=== PATIENT | female | born 1940 | race Caucasian/White ===

== ENCOUNTER 2018-06-02 00:10 | Outpatient (CLI) | payer MEDICARE, SELFPAY ==
--- NOTE | 2018-06-02 13:00 | DI.MAMMO_ITS ---
SYMPTOM/DIAGNOSIS: SCREENING, [facility], Z00.00 MAMMOGRAMS: Mammograms were interpreted according to the usual protocol including computer analysis with CAD system, tomosynthesis and C view imaging. Comparison is made with prior examinations. Breast density, Category C. No masses or microcalcifications are seen. There is nothing to suggest malignancy. IMPRESSION: Negative mammogram. Routine screening is recommended. Category 1C. MQSA ASSESSMENT OF FINDINGS: Negative. Category 1. Patient will receive a letter notifying them of these results. Bi-RADS category C. The breasts are heterogeneously dense, which may obscure small masses.
== END 2018-06-02 00:30 ==
PROVIDERS: PCP Physician Assistant Medical; Visit Provider Physician Assistant Medical
DX: Z12.31 Encounter for screening mammogram for malignant neoplasm of breast (principal)
CPT/HCPCS: 77063; 77067

== ENCOUNTER 2018-07-21 13:27 | Emergency (ER) | payer MEDICARE, SELFPAY ==
[2018-07-21 13:31] VITALS: BP 174/95; PULSE 60; RESP 26; TEMP 36.3; O2SAT 97
--- NOTE | 2018-07-21 13:58 | NUR.NOTE ---
PA is at the bedside.
[2018-07-21] MEDS: Tetracaine 0.5% 4 ML BTL (14:06)
--- NOTE | 2018-07-21 14:47 | NUR.NOTE ---
this RN b/l eyes with 1L NS, pt. continues to be extremely uncomfortable.
--- NOTE | 2018-07-21 15:03 | NUR.NOTE ---
Pt. is unable to participate in visual acuity exam d/t lack of glasses. Pt. is ambulatory, is feeling significantly better after additional drops placed by PA.
--- NOTE | 2018-07-21 15:29 | W.ED.GENAD ---
Discharge Plan Disposition Patient Disposition: OTHER Condition: Fair Discharge Details Chief Complaint: EyeProblem Clinical Impression: Acute allergic conjunctivitis of both eyes Primary Care Provider: Simona Lyons ED Provider: Jerome Davila Home Meds and New Rx's Prescriptions: No Action ursodiol [Actigall] 300 MG capsule 300 mg PO BID RF: 0 liothyronine [Cytomel] 25 MCG tablet 25 mcg PO DAILY RF: 0 levothyroxine [Synthroid] 125 MCG tablet 125 mcg PO DAILY RF: 0 Discharge Instructions Instructions: Conjunctivitis (ED) Additional Instructions: Please proceed directly to Dr. Lema's office for eye examination Referrals: [facility] [place] [Outside] (Please immediately to the office for further examination and treatment along with stabilization of your condition.) Discharge Data Discharge Date/Time-TO BE ENTERED AT DEPARTURE: 07/21/18 15:45 Medical Decision Making Patient presenting to the emergency department for chief complaint of eye pain. Patient states approximately 30 minutes after trimming a house plant, cactus, she began having some slight burning and stinging sensation to her eyes. This has slowly progressed even with use of [id number]-[id number]-[id number] eyedrops and now is severe. Patient denies any other injury or trauma, or the other symptoms. Patient is extremely anxious and appears in significant discomfort so prior to even examination tetracaine was used. After tetracaine was instilled patient has significant conjunctival and scleral injection and given the circumstance I am concerned for possible allergic conjunctivitis due to irritant. Plan to irrigate eyes and check pH for possible chemical exposure. PH was 7 After eyes were irrigated with 1 L normal saline patient reassessed and still has discomfort. Proparacaine and fluorescein sodium was instilled into the eyes and patient had almost instantaneous relief and had normal vision per her report even though she does not have her normal glasses with her. Patient has EOMs intact and still significant injection. Coreas lamp examination shows no obvious foreign body and no specific dye uptake but does show some corneal opacity. Patient does state history of severe reaction to ophthalmological histamine drops so decided to call Dr. Lema for consultation. Discussed case with Dr. Lema whom stated he was agreeable to have patient come immediately to their office for thorough examination. More proparacaine fluorescein sodium drops were instilled into drops for comfort control pending transport to their office via private vehicle. After discussion of diagnosis and plan of care patient has no further needs, questions, or concerns and states clear understanding to return to the emergency department for any worsening symptoms. HPI General Mode of arrival: ambulatory. Date/Time Provider Initiated Documentation: 07/21/18 15:28. Limitations to Documentation: no limitations. Information obtained by: patient. History of Present Illness 77 year old F presents to the emergency department with the chief complaint of eye pain, described as moderate, with intensity rated at 10. Quality is described as burning and sharp, and is localized to the eyes. Patient started experiencing this hour(s) (3) and it has been constant. No relieving factors improve symptom(s), No exacerbating factors reported . Patient notes no other symptoms. and other. Patient did receive the following treatments prior to arrival, other ([id number] eyedrops) Related Data Home Medications Medication Instructions Recorded Confirmed levothyroxine [Synthroid] 125 mcg PO DAILY 12/23/13 12/23/13 liothyronine [Cytomel] 25 mcg PO DAILY 12/23/13 12/23/13 ursodiol [Actigall] 300 mg PO BID 12/23/13 12/23/13 General Stated Complaint: EyeProblem CHRISTIANO: 2 Review of Systems Constitutional Denies fever(s) Eyes Reports as per HPI, Denies change in vision, Denies eye discharge, Reports irritation, Reports itchy eyes, Reports eye pain and Reports photophobia ENT Denies throat swelling and Denies tongue swelling Cardiovascular Denies chest pain and Denies dyspnea Respiratory Denies cough, Denies dyspnea, Denies stridor and Denies wheezing Gastrointestinal Denies nausea and Denies vomiting Allergic/Immunologic Reports itchy eyes, Denies throat swelling, Denies tongue swelling and Denies wheezing [facility] Social History Smoking/Tobacco Use Status: Former Tobacco Use Exam Const General: acute distress moderate, anxious and not ill appearing Nutritional Appearance: average body habitus Orientation: alert, awake and oriented x3 HENMT Head: normal to inspection, normocephalic and atraumatic Ears: hearing grossly normal bilaterally General nose exam: external nose normal Face and sinus: normal facial exam Mouth: oral mucosae normal, lip normal and tongue normal Throat: posterior oropharynx normal, tonsils normal and uvula midline Eyes Alignment and Position: alignment normal Periorbital: periorbital findings normal Eyelids: eyelid abnormality right lower eyelid swelling (mild) Conjunctivae: conjunctival abnormality bilaterally conjunctival injection diffuse Sclera: scleral abnormality bilaterally scleral injection diffuse Cornea: corneas abnormal bilaterally fluorescein used and diffuse opacification; without diffuse punctate uptake, without dendrites present, with no foreign body noted and without ulcerations and fluorescein used EOM: EOM intact bilaterally Direct ophthalmoscopy: normal light reflex and consensual photophobia Neck Neck: normal visual inspection, full ROM, no meningeal signs, trachea midline and supple Resp Effort & Inspection: normal respiratory effort, able to speak in complete sentences, no audible wheezes and no stridor Course Vital Signs Temperature 36.3 C L 07/21/18 13:31 Pulse 60 07/21/18 13:31 Respiratory Rate 26 H 07/21/18 13:31 Blood Pressure 174/95 H 07/21/18 13:31 Pulse Oximetry 97 07/21/18 13:31 Temperature 36.3 C L 07/21/18 13:31 Temperature Source Temporal Artery Scan 07/21/18 13:31 Pulse 60 07/21/18 13:31 Respiratory Rate 26 H 07/21/18 13:31 Respiratory Effort 07/21/18 14:46 Blood Pressure 174/95 H 07/21/18 13:31 Pulse Oximetry 97 07/21/18 13:31 Oxygen Delivery Method Room Air 07/21/18 13:31 Oxygen Flow Rate 0 07/21/18 13:31 Pain Level 10 07/21/18 13:31
[2018-07-21 15:39] VITALS: BP 146/68; PULSE 66; RESP 16; O2SAT 100
== END 2018-07-21 15:45 | disposition other institution (70) ==
PROVIDERS: Emergency Provider Nurse Practitioner Family; PCP Physician Assistant Medical
DX: H10.13 Acute atopic conjunctivitis, bilateral (principal)
CPT/HCPCS: 99283

== ENCOUNTER 2018-09-25 12:06 | Outpatient (CLI) | payer MEDICARE, SELFPAY ==
[2018-09-25 13:57] LABS: ALT 29 U/L (12-78); AST 27 U/L (15-37); Albumin 3.8 g/dL (3.4-5.0); Alkaline Phosphatase 136 U/L (46-116); Bilirubin, Direct 0.13 mg/dL (0.00-0.20); Bilirubin, Total 0.5 mg/dL (0.2-1.0); Total Protein 8.1 g/dL (6.4-8.2)
== END 2018-09-25 12:26 ==
PROVIDERS: PCP Physician Assistant Medical; Visit Provider Internal Medicine Gastroenterology
DX: K74.3 Primary biliary cirrhosis (principal)
CPT/HCPCS: 36415; 80076; 81003

== ENCOUNTER 2018-09-30 13:42 | Outpatient (REF) | payer MEDICARE, SELFPAY ==
[2018-09-30 15:06] LABS: Bilirubin Negative (Negative); Blood Trace-intact (Negative); Clarity Clear; Glucose Negative (Negative); Ketones Negative (Negative); Leukocyte Esterase Small (Negative); Nitrite Negative (Negative); Urobilinogen 0.2 EU/dL (Up TO 0.2); pH 6.5 (5-8)
[2018-09-30 15:24] LABS: Bacteria Negative HPF (Negative); C & S Indicated? Yes; Casts Negative LPF (Negative); Crystals Negative HPF (Negative); Epithelial Cells Negative HPF (Negative); Mucus Negative (Negative); Other Cells Negative (Negative); RBC 0-2 (0-2)
== END 2018-09-30 14:02 ==
LOC: LBN 13:42
PROVIDERS: PCP Physician Assistant Medical; Visit Provider Internal Medicine Gastroenterology
DX: N05.9 Unspecified nephritic syndrome with unspecified morphologic changes (principal)
CPT/HCPCS: 81003; 81015; 87086

== ENCOUNTER 2018-11-12 08:01 | Outpatient (CLI) | payer MEDICARE, SELFPAY ==
--- NOTE | 2018-11-12 13:52 | DI.RAD_ITS ---
SYMPTOMS/DIAGNOSIS: OSTEOARTHRITIS, LEFT KNEE, M17.9, PAIN FOR A WHILE, INTERMITTENT CLICKING LEFT KNEE: There is narrowing of the lateral femorotibial joint space with deformation of the articular surfaces. Periarticular spurring is seen involving all three joint compartments. No acute fracture or dislocation is seen. There is a small suprapatellar joint effusion. IMPRESSION: Moderate degenerative changes of the left knee.
== END 2018-11-12 08:21 ==
PROVIDERS: PCP Nurse Practitioner Family; Visit Provider Nurse Practitioner Family
DX: M25.562 Pain in left knee (principal); M17.12 Unilateral primary osteoarthritis, left knee; M25.462 Effusion, left knee
CPT/HCPCS: 73562

== ENCOUNTER 2018-12-08 13:34 | Outpatient (CLI) | payer MEDICARE, SELFPAY ==
--- NOTE | 2018-12-08 13:20 | DI.RAD_ITS ---
SYMPTOMS/DIAGNOSIS: OSTEOARTHRITIS, LEFT KNEE STANDING VIEW OF THE LOWER EXTREMITIES: AP standing views were performed from above the iliac crest through the ankles. There is a right total hip prosthesis. There are degenerative changes of both knees, greater of the lateral femorotibial joints. There are minimal degenerative changes of the ankles. Venous varicosities are noted around the knees.
== END 2018-12-08 13:54 ==
PROVIDERS: PCP Nurse Practitioner Family; Referring Provider Nurse Practitioner Family; Visit Provider Student in an Organized Health Care Education/Training Program
DX: M17.12 Unilateral primary osteoarthritis, left knee (principal); M25.562 Pain in left knee; Z96.641 Presence of right artificial hip joint
CPT/HCPCS: 20610; 99204; 99213; 77073; J1040

== ENCOUNTER → 2019-03-02 10:00 | Outpatient (BNVA) | payer MEDICARE, SELFPAY | PROVIDERS: PCP Nurse Practitioner Family; Referring Provider Nurse Practitioner Family; Visit Provider Student in an Organized Health Care Education/Training Program | DX: M17.12 Unilateral primary osteoarthritis, left knee (principal); M25.562 Pain in left knee | CPT/HCPCS: 20610; 99213; J1040 ==

== ENCOUNTER 2019-05-07 12:05 | Outpatient (REF) | payer MEDICARE, SELFPAY ==
[2019-05-07 21:12] LABS: Bilirubin Negative (Negative); Blood Negative (Negative); Clarity Clear (Clear); Glucose Negative (Negative); Ketones Negative (Negative); Leukocyte Esterase Trace (Negative); Nitrite Negative (Negative); Specific Gravity 1.015 (1.005-1.025); Urobilinogen 0.2 EU/dL (Up TO 0.2)
[2019-05-07 21:23] LABS: Bacteria Negative HPF (Negative); C & S Indicated? Yes; Crystals Negative HPF (Negative); Epithelial Cells Rare HPF (Negative); Mucus Negative (Negative); Other Cells Rare Transitional (Negative); RBC 0-2 (0-2)
[2019-05-07 21:39] LABS: TSH 9.29 uIU/mL (0.36-3.74)
== END 2019-05-07 12:25 ==
LOC: NCHCN 12:05
PROVIDERS: PCP Nurse Practitioner Family; Visit Provider Nurse Practitioner Family
DX: R30.0 Dysuria (principal); E03.9 Hypothyroidism, unspecified; M17.9 Osteoarthritis of knee, unspecified
CPT/HCPCS: 81003; 81015; 84443; 87086

== ENCOUNTER 2019-05-11 01:18 | Outpatient (CLI) | payer MEDICARE, SELFPAY ==
--- NOTE | 2019-05-11 14:50 | DI.MRI_ITS ---
SYMPTOM/DIAGNOSIS: OA LT KNEE, M17.9, ? LIGAMENTAL INJURY, INC PAIN AND WEAKNESS, KNEE GIVES OUT LEFT KNEE MRI: Comparison is made with plain films dated 11/12/18. Fat suppressed T 2 axial, proton density and fat suppressed T 2 coronal and sagittal and proton density oblique sagittal sequences were performed. There is thickening and high signal within the anterior cruciate ligament with fluid and globular material within the fibers. The findings likely represent mucoid degeneration. The posterior cruciate ligament, medial and lateral collateral ligaments are unremarkable. There are severe degenerative changes of the lateral femoral tibial joint, with prominent periarticular spurring and degenerative signal changes in the marrow. The lateral meniscus is severely degenerated and peripherally displaced. The posterior horn of the medial meniscus is diminutive. There is abnormal high signal in the body of the medial meniscus with a linear configuration which could represent a superimposed tear. There is high signal in the anterior aspect of the proximal tibia near the tibial spines as well as in the anterior subcutaneous fat. There is a moderate sized joint effusion. There are degenerative changes of the patellofemoral joint with thinning of the cartilage, especially near the apex. IMPRESSION: Degenerative changes, most severe in the lateral femoral tibial joint. Degenerative changes and question of superimposed tear of the medial meniscus. 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
== END 2019-05-11 01:38 ==
PROVIDERS: PCP Nurse Practitioner Family; Visit Provider Nurse Practitioner Family
DX: M25.562 Pain in left knee (principal); M17.12 Unilateral primary osteoarthritis, left knee; M23.92 Unspecified internal derangement of left knee; M25.462 Effusion, left knee
CPT/HCPCS: 73721

== ENCOUNTER → 2019-06-01 09:20 | Outpatient (BNVA) | payer MEDICARE, SELFPAY | PROVIDERS: PCP Nurse Practitioner Family; Referring Provider Nurse Practitioner Family; Visit Provider Student in an Organized Health Care Education/Training Program | DX: M17.12 Unilateral primary osteoarthritis, left knee (principal); Z98.890 Other specified postprocedural states | CPT/HCPCS: 99213 ==

== ENCOUNTER 2019-06-26 08:00 | Outpatient (CLI) | payer MEDICARE, SELFPAY ==
--- NOTE | 2019-06-26 09:56 | HPE_ITS ---
Assessment and Plan Assessment and plan (1) Primary osteoarthritis of left knee: Status: Chronic Assessment and plan: Plan: Educated patient on surgery covering surgical technique, recovery process, benefits and risks including but not limited to risk of infection, blood clot, damage to soft tissue/blood vessels/nerves in detail. After discussion patient gives verbal understanding of risks and elects to proceed with scheduling surgery. Patient had opportunity to have questions answered to their satisfaction. They will contact office if issues arise. Patient will continue to be scheduled for left total knee replacement with Dr. Feng. History of Present Illness Narrative: Ms. Fabian is a 78-year-old female who presents to clinic for pre- operative visit for scheduled left TKA. Patient has been experiencing left knee pain for several years. Patient reports very minimal discomfort in the mornings, however has aggravated left knee pain within an hour of weightbearing activity. Pain is located diffusely around the knee as well as along with the IT band. P atient treats her pain by applying CBD topically. Based on the recent severity of her left knee pain she has been taking tylenol BID and applying heat. Due to patient's knee pain she is unable to go on leisurely walks, complete desired yard work as well as animal chores. In addition she reports that the knee occasionally feels locked in a flexed position most significantly getting into bed at night. She received a steroid injection on 03/02/2019 which provided significant pain relief for several weeks. Unfortunately, since that time patient has had gradual return of joint line discomfort. Patient has history of neuropathy; denies any recent change in her numbness or tingling. Patient d enies any feelings of knee instability or muscle weakness. Denies any recent falls or injuries. Due to patient's continued discomfort due to her left knee DJD despite conservative treatment she was offered surgical intervention and elected to proceed. 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 Denies taking any immune modulating medications. Denies past medical history of: Hypertension, stroke, cardiac issues, angina, asthma, COPD, sleep apnea, gastrointestinal issues, ulcers, hyperlipidemia, bleeding disorders, seizures, anxiety, depression, diabetes Reports previous issues waking up from anesthesia and experienced hypotension following her right GT due to her autoimmune diseases. Nurse anesthesia team was consulted on her case by [facility]SU pre-op nurse. Nurse anesthesia team talked with patient and was going to her review [place] [facility] [place] Denies prior complications from surgery. Review of Systems Constitutional Constitutional: Denies fever(s), Denies frequent falls and Denies headache(s) Eyes Eyes: Denies change in vision ENT Ears, Nose, Mouth, and Throat: Denies dizziness, Denies ear discharge, Denies headache(s), Denies epistaxis, Denies nasal discharge and Denies sore throat Cardiovascular Cardiovascular: Denies chest pain, Denies rapid heart rate, Denies irregular heart rhythm, Denies palpitations, Denies dyspnea, Denies dyspnea on exertion, Denies orthopnea, Denies paroxysmal nocturnal dyspnea and Denies slow heart rate Respiratory Respiratory: Denies cough, Denies dyspnea, Denies dyspnea on exertion and Denies wheezing Gastrointestinal Gastrointestinal: Denies abdominal pain, Denies melena, Denies hematochezia, Reports constipation (chronic; denies any recent change), Denies diarrhea, Denies nausea and Denies vomiting Genitourinary Genitourinary: Denies hematuria, Denies dysuria and Denies urinary urgency Musculoskeletal Musculoskeletal: Reports as per HPI, Reports numbness (bilateral feet;denies any recent change) and Reports tingling (bilateral feet;denies any recent change) Neurologic Neurologic: Denies dizziness, Denies frequent falls, Denies headache(s), Reports numbness (bilateral feet;denies any recent change) and Reports tingling (bilateral feet;denies any recent change) Psychiatric Psychiatric: Denies anxiety and Denies depression Endocrine Endocrine: Denies palpitations Allergic/Immunologic Allergic/Immunologic: Denies wheezing [facility] Medical History (Updated 06/26/19 @ 10:07 by Cherrie Magallon) Glomerulonephritis (Chronic) Hypothyroidism (Chronic) Interstitial lung disease (Chronic) Primary biliary cirrhosis (Chronic) Surgical History (Updated 06/26/19 @ 08:14 by Merced Parsons RN) History of total right hip arthroplasty (Acute) Hx of appendectomy (Chronic) Hx of cholecystectomy (Chronic) Hx of hysterectomy (Chronic) Hx of partial thyroidectomy (Acute) Hx of tonsillectomy (Chronic) Social History (Updated 06/26/19 @ 10:08 by Cherrie Magallon) Smoking/Tobacco Use Status: Former Tobacco Use Pack-years: 2 Alcohol Intake: never Drug use: Never Substance use type: does not use Current gender identity: female Do you feel safe in your relationship?: Yes Meds Home Medications and Allergies Home Medications Medication Instructions Recorded Confirmed Type ursodiol [Actigall] 600 mg PO BID 12/23/13 06/26/19 History Nerve Renew 2 cap PO DAILY 06/26/19 06/26/19 History calcium carbonate [Calcium 600] 600 mg PO BID 06/26/19 06/26/19 History krill oil 1,000 mg PO HS 06/26/19 06/26/19 History levothyroxine 112 mcg PO DAILY 06/26/19 06/26/19 History magnesium glycinate 400 mg PO BID 06/26/19 06/26/19 History Allergies Allergy/AdvReac Type Severity Reaction Status Date / Time povidone-iodine AdvReac Intermediate Other (See Verified 06/26/19 10:08 [From Betadine] Comment) Exam Const General: cooperative and no acute distress [facility] Head: normal to inspection, normocephalic and atraumatic Ears: external ears normal General nose exam: external nose normal and no nasal discharge Face and sinus: face symmetric Mouth: oral mucosae normal, lip normal, tongue normal and moist mucous membranes Teeth and gingiva: dentition normal Throat: posterior oropharynx normal Eyes General: appearance normal, both eyes and all related structures Pupils: PERRL EOM: EOM intact bilaterally Neck Neck: trachea midline Carotids: normal carotid upstroke Lymphatic: no lymphadenopathy noted Resp Effort & Inspection: normal respiratory effort and able to speak in complete sentences Auscultation: clear to auscultation bilaterally, no rales, no rhonchi and no wheezes Cardio Heart Sounds: S1 normal, S2 normal and no murmurs Pulses: radial pulses present bilaterally GI Palpation: soft, no hepatosplenomegaly and nontender Auscultation: normal bowel sounds Skin General skin exam: no rashes or lesions noted Results Labs Result diagrams: 06/26/19 09:45 06/26/19 09:45
[2019-06-26 10:07] LABS: HCT 39.4 % (36.0-46.0); HGB 12.4 g/dL (12.0-15.5); Mean Corp. HGB Concentration 31.5 g/dL (32.0-36.0); Mean Corpuscular Hemoglobin 28.3 pg (27.0-33.0); Mean Platelet Volume 10.4 fL (8.0-11.0); Platelet Count 267 x1000/uL (130-400); RBC 4.38 m/cumm (4.00-5.20); White Blood Cell Count 6.65 k/cumm (4.4-10.8)
[2019-06-26 10:52] LABS: Anion Gap 11.4 mmol/L (3-11); BUN 32 mg/dL (7-18); CO2 26.6 mmol/L (21.0-32.0); CREATININE 1.16 mg/dL (0.55-1.02); Calcium 9.3 mg/dL (8.5-10.1); Chloride 104 mmol/L (98-107); Estimated GFR 45.42 (mL/min/1.73m2); Glucose 87 mg/dL (70-100); Potassium 4.1 mmol/L (3.5-5.1); Sodium 142 mmol/L (136-145)
[2019-06-26 11:06] LABS: TSH (W/Ref FT4) 2.88 uIU/mL (0.36-3.74)
== END 2019-06-26 08:20 ==
PROVIDERS: PCP Nurse Practitioner Family; Visit Provider Student in an Organized Health Care Education/Training Program
DX: M25.562 Pain in left knee (principal); M17.12 Unilateral primary osteoarthritis, left knee; E03.9 Hypothyroidism, unspecified; Z01.818 Encounter for other preprocedural examination; Z01.812 Encounter for preprocedural laboratory examination
CPT/HCPCS: 36415; 80048; 85027; NC; 84443

== ENCOUNTER 2019-07-08 06:24 | Inpatient (IN) | payer MEDICARE, SELFPAY ==
[2019-06-26 08:04] VITALS: BP 123/75; PULSE 71; RESP 17; TEMP 37; O2SAT 96
[2019-07-08] VITALS (16 sets, daily range): BP systolic 111–146; BP diastolic 60–86; PULSE 44–74; RESP 12–21; TEMP 36.2–37.3; O2SAT 90–99
[2019-07-08] MEDS: Gabapentin 300 MG CAP PO ×2 (07:19→22:53)
[2019-07-08] MEDS: Acetaminophen 500 MG TAB 1000 MG PO ×3 (07:19→20:23)
[2019-07-08] MEDS: Celecoxib 200 MG CAP 400 MG PO (07:20)
[2019-07-08] MEDS: Lactated Ringers 1,000 ML 80 ML IV ×2 (07:44→13:37)
[2019-07-08] MEDS: Bupivacaine 0.25% Pres-Free 30 ML VIAL ×2 (08:00→10:01)
[2019-07-08] MEDS: ceFAZolin 2 GM/50 ML BAG IVPB (08:50)
[2019-07-08] MEDS: Normal Saline 20 ML VIAL (10:01)
[2019-07-08] MEDS: Ketorolac 30 MG/ML VIAL (10:01)
--- NOTE | 2019-07-08 13:29 | NUR.NOTE ---
1230 Pt arrived to room 218 via stretcher. Alert and oriented, comfortable and in no pain. IV #[address] Right wrist with LR's infusing on OR tubing. Arias catheter in place with clear yellow urine in collection bag. Surgical dressing in place over left knee covered with a cold cryocuff. Pt was oriented to room including call leroy and phone. Lunch was ordered, see shift assessment for assesment details.
[2019-07-08] MEDS: Normal Saline Flush 10 ML SYR IV (13:37)
--- NOTE | 2019-07-08 15:52 | PT.INIE ---
Date of service: 07/08/19 Time of Service: 13:28 PT Notes Inpatient Physical Therapy Evaluation Date: 07/08/2019 Referring Doctor: Izaiah Feng MD PT Orders: PT CONSULT: Precautions: Fall. Standard. WBAT on L LE. Patient Profile/Admitting Diagnosis: Patient is a 78-year-old female s/p L TKA POD 0 due to primary unilateral osteoarthritis of the L knee. PMHX: Medical History (Updated 06/26/19 @ 10:07 by Cherrie Magallon) Glomerulonephritis (Chronic) Hypothyroidism (Chronic) Interstitial lung disease (Chronic) Primary biliary cirrhosis (Chronic) Surgical History (Updated 06/26/19 @ 08:14 by Merced Parsons RN) History of total right hip arthroplasty (Acute) Hx of appendectomy (Chronic) Hx of cholecystectomy (Chronic) Hx of hysterectomy (Chronic) Hx of partial thyroidectomy (Acute) Hx of tonsillectomy (Chronic) Social History/Home Situation: Patient lives in a two story home with her with one step to enter, no railing. She states that her son and her will be taking care of her oce she goes home. Equipment Owned/DME: None. Subjective: Patient reports she is in no pain ?but knows it?s coming?. She states she is hungry and has ordered an egg salad sandwich. She denies dizziness, lightheadedness, and headaches, and agrees to PT evaluation this afternoon. Objective: General Observation: Patient is seen laying supine in bed with HOB elevated. She is a cryocuff and alonzo bandage on L LE, antithromboembolic device on R LE. She also has a MANJINDER stocking on R LE, and IV in R UE. Mental Status: Alert and oriented x 4 Pain: 1/10 during ambulation ROM: Right Lower Extremity: Hip flexion WFL. Hip abduction WFL. Knee flexion WFL. Ankle dorsiflexion WFL. Ankle plantarflexion WFL. Left Lower Extremity: Hip flexion WFL. Hip abduction WFL. Knee flexion 100 degrees. Knee extension -5 degrees. Ankle dorsiflexion WFL. Ankle plantarflexion WFL. Strength: Right Lower Extremity: Hip flexors 4/5. Hip abductors 5/5. Knee flexors 5/5. Knee extensors 5/5. Ankle dorsiflexors 5/5. Ankle plantarflexors 5/5. Left Lower Extremity: Hip flexors 3+/5. Hip abductors 5/5. Knee flexors 3-/5. Knee extensors 3-/5. Ankle dorsiflexors 5/5. Ankle plantarflexors 5/5. Bed Mobility/Transfers: Rolling independent Supine to sit independent Sit to supine independent Sit to stand SBA Stand to sit SBA Bed to chair CGA Chair to bed CGA Gait: Patient exhibited reciprocal gait pattern using FWW, weight-bearing as tolerated on left, CGA, for 30 feet. Patient had decreased step length, step height on left, and decreased overall gait speed. Balance: Static Sitting: Normal Dynamic Sitting: Normal Static Standing: Fair Dynamic Standing: Fair Special Tests: Mobility Limitations Standardized Measure [facility]-P[facility] 6 clicks Basic Mobility Inpatient Short Form: Raw Score: 21 CMS Score: 29% Informed Consent/Education: Patient instructed in purpose of PT consult and plan of care. Assessment: patient is a 78-year-old female S/P L TKA POD 0 due to primary osteoarthritis. Her pain is well-managed, and she is ambulating well considering the duration since surgery. She lives with her in a two story home. She is confident in her abilities to ambulate rather home. Her prognosis is good. Patient presents with clinical signs and symptoms consistent with current/admitting diagnoses that have resulted to mobility limitations, gait instability, generalized weakness, and impairment of motor control as demonstrated by the following impairment level findings: 1. Decreased strength to B LE major muscle groups 2. Impaired sitting/standing balance 3. Impaired activity tolerance 4. Limitation of joint range of motion in L knee flexion/extension Impairments are contributing to the following functional limitations: 1. Dependent bed mobility skills 2. Increased dependence with transfers 3. Inability to safely ambulate without assistive device and physical assistance 4. Increase completion time for mobility ADL performance 5. Increased fall risk 6. Inability to negotiate steps alone safely [place] [address] moderate complexity based on the following: History: Patient is a 78-year-old female s/p L TKA POD 0 due to primary unilateral osteoarthritis of the L knee Examination: Demonstrable impairment in strength, balance, and range of motion with underlying impairments and functional limitations as documented above Presentation: Evolving Decision Makin moderate complexity Goals: Goals X1 week 1. Sit-Stand independent 2. Stand-Sit independent 3. Bed-Chair independent 4. Chair-Bed independent 5. Independent gait on level surface with use of least restrictive device for at least 300 feet without report of pain nor dyspnea 6. Independent stair negotiation while holding onto bilateral rails for at least 10 steps without report of pain nor dyspnea 7. Independent with home exercise program 8. Good static and dynamic standing balance/tolerance Plan of Care/Treatment Plan: 1-2x/day, 7 days/week x 1 week. Plan of care has been reviewed with the AUTOMOBILE MECHANIC MOTOR providing the service under Physical Therapy direction. Initiate Physical Therapy intervention for strengthening, bed mobility, transfers, gait, stairs, balance training, use of assistive device. DISCHARGE RECOMMENDATIONS: patient is to be discharged home under the care of her once she is medically stable, and all the above goals are met. She is recommended to use a FWW until she is fully weight-bearing. She should continue it outpatient physical therapy two weeks after her discharge. TREATMENT CODE/TIME: 40506 x 26 minutes beginning at 13:28 PM. Thank you very much for this referral. Yimi Gamboa, [facility] In consultation with: Miryam Todd PT, DPT, CLT [facility]
[2019-07-08] MEDS: oxyCODONE 5 MG TAB PO (16:03)
[2019-07-08] MEDS: Celecoxib 200 MG CAP PO (20:23)
[2019-07-08] MEDS: Aspirin E.C. 81 MG TABEC PO (20:23)
--- NOTE | 2019-07-08 21:51 | ROE_ITS ---
Date of service: 07/08/19 Time of Service: 10:51 Operative Note Operative Note DATE OF PROCEDURE: 07/08/19 PRE-OP DIAGNOSIS: Left Knee DJD POST-OP DIAGNOSIS: same PROCEDURE: Left Total Knee Replacement SURGEON: Izaiah Feng GRADES 6 THROUGH 8 TEACHER: Cherrie Magallon ANESTHESIA: regional and spinal ESTIMATED BLOOD LOSS: 250 PATHOLOGY: none sent TOURNIQUET TIME: 28 COMPLICATIONS: None Patient was transported to: PACU Patient's condition: stable Implants: 1. Depuy Attune Posterior Stabilized Femoral Component, Size 5 2. Depuy Attune Fixed Platform Tibial Component, Size 4 3. Depuy Attune 5 x 10 mm fixed, Stabilized Poly 4. Depuy Attune Patellar Component, Size 35 Indications: I have seen Sarah in clinic for symptoms of left knee arthritis, confirmed with radiographic findings. She has exhausted nonoperative methods and was having significant limitations in daily function and desired better function and less pain. I discussed the technical details of a knee replacement. I explained the risks of the procedure to include, but not limited to, bleeding, infection, pain, stiffness, fracture, damage to nerves and vessels, damage to muscles and tendons, loosening, need for repeat procedure, blood clot and cardiopulmonary demise. Despite these risks, she elected to proceed. Findings: There was significant signs of arthritis throughout the knee. Procedure Description: Sarah was greeted in the preoperative holding area where the correct side was identified and marked. The consent was reviewed with the patient and signed. The history and physical was updated. All questions were answered. Preoperative mediacations were administered: [Acetaminophen 1000mg, Celebrex 400mg, and Gabapentin 300mg]. [An adductor canal block was then administered by the anesthesia team in the PACU. ] Sarah was taken back to the operating room. [A spinal anesthestic was then administered. ]The patient was placed into the supine position on the operating room table. A nonsterile tourniquet was placed high onto the leg but [only used for cementing]. Posts were placed for positioning during the procedure. All bony prominences were well padded. Prophylactic antibiotics in the form of [Cefazolin] were administered. [1g of Tranxemic Acid was given intravenously within 30 minutes of incision. ]The left leg was then prepped with Chloraprep and draped in a standard fashion with impervious stockinette and extremity drape. A second prep with Chloraprep was performed prior to placing Ioband. A timeout to confirm correct identity, side and site, procedure, allergies, anesthesia, and medical concerns was performed. With the knee in some flexion, a midline incision was made overlying the knee. Full thickness skin flaps were raised once the extensor mechanism was encountered. These were raised medially and laterally. Any bleeding was controlled with electrocautery. Once the extensor mechanism was fully exposed, a medial parapatellar arthrotomy was performed in a flexed position. All bleeding from the arthrotomy and the geniculate arteries was coagulated. A medial subperiosteal peel was performed with electrocautery to the midcoronal plane. The fat pad was removed while keeping the patellar tendon protected. The anterior distal femur synovium was removed for later visualization. The ACL and PCL were resected and the anterior horn of the lateral meniscus was transected. The knee was then flexed with the patella everted. [Large osteophytes from the tibia were removed. ][Large osteophytes from the femur were removed. ] Using a step drill, and based on preoperative templating, the femoral canal was entered. This was done with a step drill without any difficulty. The intramedullary distal femoral cut guide was inserted, set to a 5 degree valgus c ut and 9mm cut thickness. The distal femoral cut guide was then held in position and pinned. With the soft tissues protected, the distal cut was performed. This was passed over a few times to ensure a planar cut. I then turned attention to the tibia. The extramedullary guide was placed onto the leg. The distal aspect was slid medial to adjust for position of center of ankle and stay in line with shaft of the tibia. Approximately 3-5 degrees of posterior slope was kept in the proximal cutting guide. The center of the guide was aligned with the PCL. The stylus was used to assess cut thickness. [The medial side, most involved side, was set for a 4mm cut. ]This was then held in position and pinned into place with 2 additional pins and a cross pin for stability. The medial and lateral collateral ligaments were protected and the cut was performed. With this completed, it was assessed and noted to be of appropriate dimensions. The guide was removed. A spacer block was inserted and the knee was brought into extension. The 8 mm spacer block provided full extension, without hyperextension and with stability of both the medial and lateral collateral ligaments was assessed. The pins from the femur and the tibia were then removed. The distal femur was then sized. The anterior stylus was placed onto the lateral ridge of the anterior femur. This indicated a size 5 femur. The external rotation of the guide was adjusted to [3 degrees] to match the epicondylar axis, perpendicular to [place]?s line. The 4-in-1 cutting guide was the placed. The posterior medial femur cut was evaluated and appeared of good thickness. The spacer block was inserted underneath the cutting guide and stability was confirmed in 90 degrees of flexion. An nancy wing was used to confirm appropriate position of the anterior cut to avoid notching. This cutting guide was ensured to be flush on the cut surface and then pinned into place with headed pins. While protecting the soft tissues, quad tendon, and collateral ligaments, the anterior and posterior cuts were performed with a saw. The central two pins were removed and the posterior and anterior chamfers were cut next. The notch-cutting guide was placed. This was pinned to lateralize the femoral component as much as possible while keeping it flush on the cut surface. This was then pinned into position. A reciprocating saw was used to make the notch cut. A rasp smoothed the cut surfaces. A trial posterior stabilized femoral component was then inserted, impacted down to the cut surfaces, and the lug holes were drilled. A provisional trial tibial component was placed and the knee was brought through range of motion. [ The polyethylene was trialed until there was good flexion and extension with excellent stability to the medial and lateral collaterals.] The patella was tracking without thumbs. The tibial cut surface was fully exposed. The medial and lateral menisci were removed. The tibia was then sized as a 4. The tibia had been previously marked during trialing to correspond to the center of the tibial component to help with rotation. The trial was aligned to this alexandru, approximately rotated to the medial 1/3rd of the tibial tubercle. The trial was pinned into place. The tibia was prepared with a reamer and a keel punch. The knee was then brought into extension and the patella was measured as [25]mm. Using the patellar clamp and cut guide, this was resected to a flat surface with at least 13mm of thickness remaining. The size [35] patella fit the best. This was oriented and then clamped into position. The lugs were drilled. The trial components were removed. The final components, except for the polyethylene were opened on the back table. The periosteal and capsular tiss ues, especially posteriorly, around the knee were then systematically injected with a periarticular cocktail consisting of 50cc 0.25% Marcaine, 30mg Ketorolac, 20cc of Exparal and 50cc of injectable saline. The tourniquet was then inflated to 275mmHg. The knee was thoroughly irrigated with a pulse lavage and dried. On the back table, with the implants opened, the cement was mixed. 2 batches of antibiotic laden cement were prepared with vacuum assistance. After the cement was ready it was placed on to the back side of the tibial component. A small amount was placed onto the posterior flange of the femur. Cement was manual pressurized and impregnated into the cut surface of the tibia. The tibial component was then inserted into the cut surface and impacted into position. Excess cement was removed and the component was reimpacted. Again, excess cement was removed and our attention was then turned to the femur. The femoral cut surface was once again dried and cement was manually impacted into the cut surface. The femoral component was lined with the lug holes and impacted. Excess cement was removed. It was ensured to be down against the cut surface. The trial polyethylene was then inserted and the leg was brought out into full extension for the duration of the cement curing process, approximately 15min. Cement was lastly manually impacted into the cut surface of the patella and the patellar button was clamped into position and held. During this process attention was turned to the gutters of the knee and for all interfaces for any excess cement. After the cement had finally cured, approximately 15min, the clamp was removed from the patella and the knee was taken through range of motion. A size 10 mm polyethylene component provided the best range of motion and stability with less than 2mm gapping with medial and lateral stress and full extension without significant hyperextension. The patella was tracking with a no-thumbs technique. The trial poly was removed and once again the knee was checked for any loose, excess, or errant cement. The poly component was then inserted and impacted into position after cleaning and drying the tibial tray. The capsule was then reapproximated with a No. 1 Vicryl at multiple locations. The capsule was finally closed with a No. 2 Stratafix, barbed suture. The tourniquet was then released and the arthrotomy appeared watertight without significant bleeding. The second dosing of 1g TXA was started. Deep tissues were then reapproximated with 0 Vicryl and 2-0 Vicryl. The skin was closed with a running 3-0 Monocryl in a subcuticular fashion. This was reinforced with skin glue. A Mepilex silver dressing was applied along with a [id number] NING wrap. A CryoCuff was applied. Erika was transferred to the hospital bed without difficulty an suffering no apparent complication. Sarah has a good prognosis. Physical therapy will start today and without restrictions, weight-bearing as tolerated. [Aspirin 81mg BID] will be used for DVT prophylaxis.
[2019-07-09 00:31] VITALS: BP 107/68; PULSE 64; RESP 17; TEMP 36.3; O2SAT 90
[2019-07-09] MEDS: oxyCODONE 5 MG TAB PO ×2 (02:02→08:03)
[2019-07-09 03:20] VITALS: BP 114/61; PULSE 61; RESP 18; TEMP 36.7; O2SAT 95
[2019-07-09] MEDS: Lactated Ringers 1,000 ML 80 ML IV ×2 (03:25→07:46)
[2019-07-09 07:20] VITALS: BP 123/72; PULSE 66; RESP 18; TEMP 36.7; O2SAT 96
[2019-07-09] MEDS: Levothyroxine 112 MCG TAB PO (07:49)
[2019-07-09] MEDS: Pantoprazole 40 MG TABCR PO (07:49)
--- NOTE | 2019-07-09 08:03 | W.PM.DS.N ---
Date of service: 07/09/19 Time of Service: 08:03 DS: Diagnosis Discharge Diagnosis (1) Primary osteoarthritis of left knee: Status: Chronic Discharge Plan Disposition Patient Disposition: HOME Condition: Good Discharge Details Reason For Visit: TOTAL KNEE Admit Date/Time: 07/08/19 06:24 Admit Provider: Izaiah Feng Attending Provider: Izaiah Feng Primary Care Provider: Honey Montilla Hospital Course Hospital Course: Patient was admitted to the medical/surgical floor following the procedure. It was tolerated well without any notable medical, surgical, or anesthetic complications. Mobilization began postoperatively. The bear catheter was removed and voiding spontaneously. Vitals were stable. Physical therapy worked with the patient and was cleared for discharge home. No acute medical issues. Home Meds and New Rx's Prescriptions: New acetaminophen 500 mg tablet 1,000 mg PO Q8H PRN (Reason: pain) Qty: 90 RF: 3 aspirin 81 mg tablet,delayed release (DR/EC) 81 mg PO BID Qty: 60 RF: 0 celecoxib 200 mg capsule 200 mg PO BID PRN (Reason: pain) Qty: 60 RF: 1 pantoprazole 40 mg tablet,delayed release (DR/EC) 40 mg PO DAILY Qty: 30 RF: 0 oxycodone 5 mg tablet 5 mg PO Q4H Qty: 12 RF: 0 Continued ursodiol [Actigall] 300 MG capsule 600 mg PO BID RF: 0 levothyroxine 112 mcg Tablet 112 mcg PO DAILY RF: 0 calcium carbonate [Calcium 600] 600 mg calcium (1,500 mg) Tablet 600 mg PO BID RF: 0 magnesium glycinate 100 mg Tablet 400 mg PO BID RF: 0 krill oil 500 mg Capsule 1,000 mg PO HS RF: 0 Nerve Renew 1 cap PO BID RF: 0 Discharge Instructions Additional Instructions: Dr. Feng?s Total Knee Discharge Instructions Activity: The most important activity is to walk. You should try to take short walks a few times a day. It is important that when resting you work on keeping the knee straight. Avoid putting a pillow behind the knee as this will encourage flexion. Work on range of motion exercises as provided by Physical Therapy. - Start outpatient physical therapy within 2 weeks. - You should wear the MANJINDER hose on both legs for 2 weeks. Dressing: Keep the surgical dressing in place for at least one week. After the first week it may be removed and replace with light gauze and tape or nothing. It may get wet after 3 days but avoid soaking the dressing. If it gets wet, just lightly pat dry. Medications: - You should take Tylenol and anti-inflammatory Celebrex as your primary pain control medications - You have been prescribed a stronger pain medication Oxycodone for breakthrough pain, take as needed as prescribed. - You have also been prescribed a stomach acid reduction agent Pantoprozole to help reduce stomach acid and reflux. - You will be taking Aspirin 81mg twice a day for DVT prevention unless instructed otherwise. - If you have constipation you should take Colace or Miralax (both [id number]). It takes most people 3-4 days to have a bowel movement. Follow-up: 2 weeks Referrals: Izaiah Feng MD [ [facility] STAFF PHYSICIAN] - [facility] [Provider Group] (f/u L TKA within 2 weeks) Activity:: Activity as Tolerated Equipment/Supplies:: Walker Diet:: As Tolerated Discharge Orders Discharge Orders: Discharge Order (Routine); Ordered 07/09/19 Ordered By: Izaiah Feng DS: Summary Status at Discharge Functional status at discharge: uses cane/walker Overall status at discharge: patient is progressing back to baseline Mental Status: mental status grossly normal Speech and Movement: speech and movement normal Mood: congruent mood Affect: normal affect Exam Psych Mental Status: mental status grossly normal Speech and Movement: speech and movement normal Mood: congruent mood Affect: normal affect DS: Data Vitals/I&O Vitals and I&O: Vital Signs Temperature 36.7 C 07/09/19 03:20 Temperature Source Skin 07/09/19 03:20 Pulse 61 07/09/19 03:20 Pulse Rhythm Regular 07/09/19 01:30 Respiratory Rate 18 07/09/19 03:20 Respiratory Effort Non-Labored 07/09/19 01:30 Respiratory Depth Normal 07/09/19 01:30 Respiratory Pattern Normal 07/09/19 01:30 Blood Pressure 114/61 07/09/19 03:20 Pulse Oximetry 95 07/09/19 03:20 Oxygen Delivery Method Room Air 07/09/19 03:20 Oxygen Flow Rate 0 07/09/19 03:20 Pain Level 2 07/09/19 03:20 Comment 07/09/19 03:20 Intake & Output 07/08/19 07/08/19 07/09/19 11:59 23:59 11:59 Intake Total 1070 / 9.333 969.333 / 9.333 1478.667 / 1478.667 Output Total 450 / 700 250 / 700 450 / 450 Balance 620 / 1339.333 719.333 / 9994.692 6911.667 / 1028.667 Weight 65.1 kg Intake: IV 770 / 1259.333 489.333 / 5749.831 6448.667 / 1378.667 Oral 300 / 780 480 / 780 100 / 100 Output: Urine 300 / 550 250 / 550 450 / 450 Estimated Blood Loss 150 / 150 Other: Urine Color Yellow Light Doreen Straw Urine Appearance Clear Clear Clear Emesis Description None None PFSH Medical History Glomerulonephritis (Chronic) H/O benign neoplasm of parathyroid gland (Acute) Pt reports 5-6 years ago, benign tumor removed. 07/08/19 TR Hypothyroidism (Chronic) Interstitial lung disease (Chronic) Primary biliary cirrhosis (Chronic) Surgical History History of total right hip arthroplasty (Acute) Hx of appendectomy (Chronic) Hx of cholecystectomy (Chronic) Hx of hysterectomy (Chronic) Hx of partial thyroidectomy (Acute) Hx of tonsillectomy (Chronic) Social History Smoking/Tobacco Use Status: Former Tobacco Use Pack-years: 2 Alcohol Intake: never Drug use: Never Substance use type: does not use Current gender identity: female Do you feel safe in your relationship?: Yes
[2019-07-09] MEDS: Acetaminophen 500 MG TAB 1000 MG PO (08:04)
[2019-07-09] MEDS: Ursodiol 300 MG CAP 600 MG PO (08:04)
[2019-07-09] MEDS: Celecoxib 200 MG CAP PO (08:05)
[2019-07-09] MEDS: Aspirin E.C. 81 MG TABEC PO (08:06)
[2019-07-09] MEDS: Dexamethasone 4 MG TAB PO (08:06)
[2019-07-09] MEDS: Calcium Carbonate 1.5 GM TAB PO (08:06)
[2019-07-09] MEDS: Docusate Sodium 100 MG CAP PO (08:06)
[2019-07-09 10:57] VITALS: BP 101/61; PULSE 66; RESP 18; TEMP 36.7; O2SAT 96
--- NOTE | 2019-07-09 12:06 | PT.INTREAT ---
Date of service: 07/09/19 Time of Service: 12:06 PT Notes Inpatient Physical Therapy Treatment Note [facility] Date: 07/09/19 PRECAUTIONS:Fall, WBAT L SUBJECTIVE: Sarah states that she is feeling better this morning, she is hopeful that she will return to home later today. OBJECTIVE: PAIN: Patient c/o L LE discomfort with ther ex BED MOBILITY/TRANSFERS Supine?sit: I with HOB flat Sit?supine: I with HOB flat Sit-stand: S Stand-sit: S GAIT Assistive Device: FWW Weight bearing: WBAT L Assist: SBA Distance: 80' x2 THEREX: Patient completed a LE strengthening and stabilization program, in a supine position, as per flow sheet. Patient was able to perform active SLR x10. She ends with cryocuff to L LE. STAIRS: Up/down 3 x 4 and 2?6 1 rail/SPC and a step to pattern with SBA ASSESSMENT: Patient tolerated a progression in gait distance with FWW support and SBA. She demonstrates independence with bed mobility at this time. PLAN: Continue with PT's POC TREATMENT CODE/TIME: 25 minutes; [id number], [id number]
--- NOTE | 2019-07-09 16:37 | PDOC.CMPRO ---
Care Management Progress Note Sarah was fully dressed, her friend waiting with her for discharge. CM provided FWW through [facility] at patient request. She reported feeling well informed regarding discharge plan and shared no concerns.
--- NOTE | 2019-07-10 11:54 | PT.INDS ---
Date of service: 07/10/19 PT Notes Date: 07/10/2019 Dates of Service: 07/08/2019 through 07/09/2019 Referring Doctor: Izaiah Feng MD PT Orders: PT CONSULT: Precautions: Fall. Standard. WBAT on L LE. Patient Profile/Admitting Diagnosis: Patient is a 78-year-old female s/p L TKA POD 0 due to primary unilateral osteoarthritis of the L knee. PMHX: Medical History (Updated 06/26/19 @ 10:07 by Cherrie Magallon) Glomerulonephritis (Chronic) Hypothyroidism (Chronic) Interstitial lung disease (Chronic) Primary biliary cirrhosis (Chronic) Surgical History (Updated 06/26/19 @ 08:14 by Merced Parsons RN) History of total right hip arthroplasty (Acute) Hx of appendectomy (Chronic) Hx of cholecystectomy (Chronic) Hx of hysterectomy (Chronic) Hx of partial thyroidectomy (Acute) Hx of tonsillectomy (Chronic) Social History/Home Situation: Patient lives in a two story home with her with one step to enter, no railing. She states that her son and her will be taking care of her oce she goes home. Equipment Owned/DME: None. Subjective:NT Objective: General Observation: NT Mental Status: NT Pain: NT ROM: Right Lower Extremity: Hip flexion WFL. Hip abduction WFL. Knee flexion WFL. Ankle dorsiflexion WFL. Ankle plantarflexion WFL. Left Lower Extremity: Hip flexion WFL. Hip abduction WFL. Knee flexion 100 degrees. Knee extension -5 degrees. Ankle dorsiflexion WFL. Ankle plantarflexion WFL. Strength: Right Lower Extremity: Hip flexors 4/5. Hip abductors 5/5. Knee flexors 5/5. Knee extensors 5/5. Ankle dorsiflexors 5/5. Ankle plantarflexors 5/5. Left Lower Extremity: Hip flexors 3+/5. Hip abductors 5/5. Knee flexors 3-/5. Knee extensors 3-/5. Ankle dorsiflexors 5/5. Ankle plantarflexors 5/5. Bed Mobility/Transfers: Rolling independent Supine to sit independent Sit to supine independent Sit to stand supervision Stand to sit supervision Bed to chair supervision Chair to bed supervision Gait: Patient exhibited reciprocal gait pattern using FWW, weight-bearing as tolerated on left, CGA for 80 feet x 2. Up and down three 4 steps and two 6 steps with step-to gait pattern. Balance: Static Sitting: Normal Dynamic Sitting: Normal Static Standing: Fair Dynamic Standing: Fair Assessment: Patient is a 78-year-old female S/P L TKA POD 0 due to primary osteoarthritis. Her pain is well-managed, and she is ambulating well considering the duration since surgery. She lives with her in a two-story home. She is confident in her abilities to ambulate at home. Her prognosis is good. Patient presents with clinical signs and symptoms consistent with current/admitting diagnoses that have resulted to mobility limitations, gait instability, generalized weakness, and impairment of motor control as demonstrated by the following impairment level findings: 1. Decreased strength to B LE major muscle groups 2. Impaired sitting/standing balance 3. Impaired activity tolerance 4. Limitation of joint range of motion in L knee flexion/extension Impairments are contributing to the following functional limitations: 1. Increased dependence with transfers 2. Inability to safely ambulate without assistive device and physical assistance 3. Increase completion time for mobility ADL performance 4. Increased fall risk 5. Inability to negotiate steps alone safely Goals: Goals X1 week 1. Sit-Stand independent MET 2. Stand-Sit independent MET 3. Bed-Chair independent MET 4. Chair-Bed independent MET 5. Independent gait on level surface with use of least restrictive device for at least 300 feet without report of pain nor dyspnea NOT MET 6. Independent stair negotiation while holding onto bilateral rails for at least 10 steps without report of pain nor dyspnea NOT MET 7. Independent with home exercise program NOT MET 8. Good static and dynamic standing balance/tolerance NOT MET DISCHARGE RECOMMENDATIONS: Patient is to be discharged home under the care of her once she is medically stable, and all the above goals are met. She is recommended to use a FWW until she is fully weight-bearing. She should continue it outpatient physical therapy two weeks after her discharge. TREATMENT CODE/TIME: NC. Thank you very much for this referral. Miryam Todd PT, DPT, CLT [facility]
== END 2019-07-09 13:00 | disposition home or self-care (01) | DRG 470 ==
LOC: PDS 10:20 → MS 11:29 → PDS 11:46
PROVIDERS: Admitting Provider Student in an Organized Health Care Education/Training Program; PCP Nurse Practitioner Family; Visit Provider Student in an Organized Health Care Education/Training Program
PROC: 0SRD0J9 Replacement of Left Knee Joint with Synthetic Substitute, Cemented, Open Approach (ICD-10-PCS; CPT 27447; principal; 2019-07-08 08:15)
DX: M17.12 Unilateral primary osteoarthritis, left knee (principal); J84.9 Interstitial pulmonary disease, unspecified; M25.562 Pain in left knee; Z96.652 Presence of left artificial knee joint; G89.18 Other acute postprocedural pain; E03.9 Hypothyroidism, unspecified; Z87.891 Personal history of nicotine dependence
CPT/HCPCS: 27447; 76942; 97110; 97162; 97530; NC; J0690; J1885; J2250; J2405; J3010; J8540

== ENCOUNTER 2019-07-22 08:51 | Outpatient (CLI) | payer MEDICARE, SELFPAY ==
--- NOTE | 2019-07-22 08:29 | DI.RAD_ITS ---
EXAM: XR STANDING ALIGNMENT CLINICAL HISTORY: 1ST POST OP LEFT TKA TECHNIQUE: AP views of the lower extremities were obtained for leg length determination. COMPARISON: XR standing alignment from 12/08/2018 FINDINGS: There is a total hip joint replacement in position on the right. Left hip shows mild degenerative ch anges. There is a total knee joint replacement in position on the left. There are degenerative thrasher ges of the right knee predominantly involving lateral tibiofemoral joint.
--- NOTE | 2019-07-22 08:29 | DI.RAD_ITS ---
EXAM: XR KNEE LT 1V CLINICAL HISTORY: 1ST POST OP LEFT TKA TECHNIQUE: The study was performed according to the usual protocol. COMPARISON: No exams were available for comparison FINDINGS: Single lateral view of the knee was obtained and shows total knee joint replacement in position. The components appear well seated on this single view.
== END 2019-07-22 09:11 ==
PROVIDERS: PCP Nurse Practitioner Family; Visit Provider Physician Assistant
DX: Z96.652 Presence of left artificial knee joint (principal); Z47.1 Aftercare following joint replacement surgery; Z96.641 Presence of right artificial hip joint; M16.12 Unilateral primary osteoarthritis, left hip; M17.11 Unilateral primary osteoarthritis, right knee
CPT/HCPCS: 73560; 77073

== ENCOUNTER 2019-08-18 12:23 | Outpatient (REF) | payer MEDICARE, SELFPAY ==
[2019-08-18 23:22] LABS: FREE T4 1.15 ng/dL (0.76-1.46); TSH 4.54 uIU/mL (0.36-3.74)
[2019-08-18 23:37] LABS: T4 11.6 ug/mL (4.7-13.3)
[2019-08-19 16:49] LABS: T3,Free 2.6 pg/mL (2.8-5.3)
[2019-08-19 17:04] LABS: T3, Total 85 ng/dL (97-169)
== END 2019-08-18 12:43 ==
LOC: NCHCN 12:23
PROVIDERS: PCP Nurse Practitioner Family; Visit Provider Nurse Practitioner Family
DX: E03.8 Other specified hypothyroidism (principal); R94.6 Abnormal results of thyroid function studies
CPT/HCPCS: 84436; 84439; 84443; 84480; 84481

== ENCOUNTER → 2019-08-20 09:12 | Outpatient (BNVA) | payer MEDICARE, SELFPAY | PROVIDERS: PCP Nurse Practitioner Family; Referring Provider Nurse Practitioner Family; Visit Provider Student in an Organized Health Care Education/Training Program | DX: Z47.1 Aftercare following joint replacement surgery (principal); Z96.652 Presence of left artificial knee joint ==

== ENCOUNTER → 2019-10-05 09:16 | Outpatient (BNVA) | payer MEDICARE, SELFPAY | PROVIDERS: PCP Nurse Practitioner Family; Referring Provider Nurse Practitioner Family; Visit Provider Student in an Organized Health Care Education/Training Program | DX: Z47.1 Aftercare following joint replacement surgery (principal); Z96.652 Presence of left artificial knee joint ==

== ENCOUNTER 2020-02-03 01:06 | Outpatient (CLI) | payer MEDICARE, SELFPAY ==
[2020-02-03 10:34] LABS: ALT 42 U/L (14-59); AST 41 U/L (15-37); Albumin 3.6 g/dL (3.4-5.0); Alkaline Phosphatase 327 U/L (46-116); Bilirubin, Direct 0.19 mg/dL (0.00-0.20); Bilirubin, Total 0.5 mg/dL (0.2-1.0); Total Protein 8.1 g/dL (6.4-8.2)
[2020-02-03 10:43] LABS: FREE T4 1.65 ng/dL (0.76-1.46); TSH 0.82 uIU/mL (0.36-3.74)
== END 2020-02-03 01:26 ==
PROVIDERS: Internal Medicine Gastroenterology; PCP Nurse Practitioner Family; Visit Provider Internal Medicine Endocrinology, Diabetes & Metabolism
DX: E03.9 Hypothyroidism, unspecified (principal); K74.3 Primary biliary cirrhosis
CPT/HCPCS: 36415; 80076; 84439; 84443

== ENCOUNTER 2020-02-29 01:27 | Outpatient (CLI) | payer MEDICARE, SELFPAY ==
--- NOTE | 2020-02-29 | DI.US_ITS ---
EXAM: US ABDOMEN CLINICAL HISTORY: PRIMARY BILIARY CHOLANGINITIS,K74.3,ELEVATED ALK PHOS,R74.8, ? BILIARY TECHNIQUE: Ultrasound performed using standard protocol. COMPARISON: CT CHEST HIGH RESOLUTION from 07/24/2012 FINDINGS: Liver appears enlarged measuring 17.1 cm in length. The echogenicity is normal. No liver masses a re seen. There is no biliary dilatation. Common bile duct measures 3 millimeters. The patient is s tatus post cholecystectomy. The pancreas, spleen and kidneys as well as aorta are unremarkable. IMPRESSION: Status post cholecystectomy. Enlarged liver. No biliary dilatation. DATA REPOSITORY:
== END 2020-02-29 01:47 ==
PROVIDERS: PCP Nurse Practitioner Family; Visit Provider Internal Medicine Gastroenterology
DX: K74.3 Primary biliary cirrhosis (principal); R74.8 Abnormal levels of other serum enzymes; R16.0 Hepatomegaly, not elsewhere classified; Z90.49 Acquired absence of other specified parts of digestive tract
CPT/HCPCS: 76700

== ENCOUNTER 2020-02-29 02:07 | Outpatient (CLI) | payer MEDICARE, SELFPAY ==
[2020-02-29 11:09] LABS: ALT 47 U/L (14-59); AST 45 U/L (15-37); Albumin 3.8 g/dL (3.4-5.0); Alkaline Phosphatase 320 U/L (46-116); Anion Gap 8.1 mmol/L (3-11); BUN 28 mg/dL (7-18); Bilirubin, Total 0.6 mg/dL (0.2-1.0); CO2 28.9 mmol/L (21.0-32.0); CREATININE 1.19 mg/dL (0.55-1.02); Calcium 9.5 mg/dL (8.5-10.1); Calculated LDL 141 mg/dL (<100); Chloride 104 mmol/L (98-107); Cholesterol 242 mg/dL (<200); Estimated GFR 43.98 (mL/min/1.73m2); GGT 154 U/L (5-55); Glucose 81 mg/dL (74-106); HDL Cholesterol 80 mg/dL (40-60); Potassium 4.2 mmol/L (3.5-5.1); Sodium 141 mmol/L (136-145); Total Protein 8.3 g/dL (6.4-8.2); Triglyceride 106 mg/dL (<150)
[2020-03-01 10:11] LABS: IgA 105 mg/dL (85-499)
[2020-03-01 20:20] LABS: Tissue Transglutaminase Ab IgA <1.2 U/mL
[2020-03-03 13:02] LABS: Alkaline Phosphatase 300 U/L (35 - 104); Bone % 11.4 % (19.1-67.7); Liver % 71.2 % (27.8-76.3); Liver 2% 17.4 % (0.0-8.0)
== END 2020-02-29 02:27 ==
PROVIDERS: PCP Nurse Practitioner Family; Visit Provider Internal Medicine Gastroenterology
DX: K74.3 Primary biliary cirrhosis (principal); R74.8 Abnormal levels of other serum enzymes; R16.0 Hepatomegaly, not elsewhere classified; Z90.49 Acquired absence of other specified parts of digestive tract
CPT/HCPCS: 36415; 80053; 80061; 82784; 84075; 84080; 76700; 82977; 83516

== ENCOUNTER 2020-04-08 02:28 | Outpatient (CLI) | payer MEDICARE, SELFPAY ==
[2020-04-08 12:34] LABS: ALT 36 U/L (14-59); AST 39 U/L (15-37); Albumin 3.6 g/dL (3.4-5.0); Alkaline Phosphatase 279 U/L (46-116); Anion Gap 10.4 mmol/L (3-11); BUN 31 mg/dL (7-18); Bilirubin, Total 0.5 mg/dL (0.2-1.0); CO2 24.6 mmol/L (21.0-32.0); CREATININE 1.24 mg/dL (0.55-1.02); Calcium 9.5 mg/dL (8.5-10.1); Calculated LDL 143 mg/dL (<100); Chloride 103 mmol/L (98-107); Cholesterol 232 mg/dL (<200); Estimated GFR 41.94 (mL/min/1.73m2); GGT 144 U/L (5-55); Glucose 81 mg/dL (74-106); HDL Cholesterol 69 mg/dL (40-60); Potassium 4.4 mmol/L (3.5-5.1); Sodium 138 mmol/L (136-145); Triglyceride 104 mg/dL (<150)
[2020-04-08 12:41] LABS: ALT 37 U/L (14-59); AST 40 U/L (15-37); Albumin 3.7 g/dL (3.4-5.0); Alkaline Phosphatase 284 U/L (46-116); Bilirubin, Direct 0.16 mg/dL (0.00-0.20); Bilirubin, Total 0.5 mg/dL (0.2-1.0); FREE T4 1.35 ng/dL (0.76-1.46); TSH 1.77 uIU/mL (0.36-3.74); Total Protein 8.2 g/dL (6.4-8.2)
[2020-04-11 11:07] LABS: IgA 105 mg/dL (85-499)
[2020-04-11 13:25] LABS: Tissue Transglutaminase Ab IgA <1.2 U/mL
== END 2020-04-08 02:48 ==
PROVIDERS: Internal Medicine Endocrinology, Diabetes & Metabolism; PCP Nurse Practitioner Family; Visit Provider Internal Medicine Gastroenterology
DX: E03.9 Hypothyroidism, unspecified (principal); K74.3 Primary biliary cirrhosis; R74.8 Abnormal levels of other serum enzymes
CPT/HCPCS: 36415; 80053; 80061; 80076; 82784; 82977; 83516; 84439; 84443

== ENCOUNTER 2020-04-20 02:51 | Outpatient (CLI) | payer MEDICARE, SELFPAY ==
--- NOTE | 2020-04-20 | DI.DEXA_ITS ---
EXAM: XR DEXA BONE DENSITY W/WO BEAR CLINICAL HISTORY: OSTEOPOROSIS, M81.0 TECHNIQUE: COMPARISON: No exams were available for comparison FINDINGS: DEXA scan was performed according to the usual protocol. Please see the accompanying data sheets. F indings for left hip scanning are T-score -2.1 with left femoral neck T-score -1.8. Previous examina tion of August 2017 showed left hip T-score -2.0. Lumbar spine scanning shows T-score -1.0. Prior study of 2016 showed T-score -1.2. Left forearm scanning shows T-score -2.8. Prior study of 2017 showed T-score -3.3. IMPRESSION: Findings consistent with osteoporosis according to the WHO criteria. No definite vertebral compressi on fracture seen but thoracic vertebral bodies are not well visualized, if clinically indicated addit ional evaluation with radiographs of the thoracic and lumbar spine could be considered to evaluate th e possibility of compression fractures.
== END 2020-04-20 03:11 ==
PROVIDERS: PCP Nurse Practitioner Family; Visit Provider Nurse Practitioner Family
DX: M81.0 Age-related osteoporosis without current pathological fracture (principal)
CPT/HCPCS: 77080

== ENCOUNTER 2020-06-03 03:42 | Outpatient (CLI) | payer MEDICARE, SELFPAY ==
--- NOTE | 2020-06-03 | DI.MAMMO_ITS ---
EXAM: MG MAMMO SCREENING CLINICAL HISTORY: SCREENING, Z12.39 TECHNIQUE: Mammograms were interpreted according to the usual protocol including computer analysis w [employer] CAD system, tomosynthesis and C-view imaging. COMPARISON: FINDINGS: The breasts are heterogeneously dense. No dominant mass or clumped microcalcification is identified in either breast. The current examination is compared with previous examinations including May 2018 and there has been no gross interval change in appearance in comparison with the prior studies. IMPRESSION: No specific evidence of malignancy at this time. Routine screening examinations are suggested at yea rly intervals in this age group according to the ACS ACR guidelines. BI-RADS Cat 1 - Negative Breast Density - Category C - Heterogeneously dense
== END 2020-06-03 04:02 ==
PROVIDERS: PCP Nurse Practitioner Family; Visit Provider Nurse Practitioner Family
DX: Z12.31 Encounter for screening mammogram for malignant neoplasm of breast (principal); R92.2 Inconclusive mammogram
CPT/HCPCS: 77063; 77067

== ENCOUNTER 2020-06-08 02:52 | Outpatient (CLI) | payer MEDICARE, SELFPAY ==
[2020-06-08 10:32] LABS: ALT 29 U/L (14-59); AST 39 U/L (15-37); Albumin 3.5 g/dL (3.4-5.0); Alkaline Phosphatase 149 U/L (46-116); Bilirubin, Direct 0.19 mg/dL (0.00-0.20); Bilirubin, Total 0.5 mg/dL (0.2-1.0)
== END 2020-06-08 03:12 ==
PROVIDERS: PCP Nurse Practitioner Family; Visit Provider Internal Medicine Gastroenterology
DX: K74.3 Primary biliary cirrhosis (principal)
CPT/HCPCS: 36415; 80076

== ENCOUNTER 2020-06-22 01:10 | Outpatient (CLI) | payer MEDICARE, SELFPAY ==
[2020-06-22 12:28] LABS: ALT 43 U/L (14-59); AST 51 U/L (15-37); Albumin 3.3 g/dL (3.4-5.0); Alkaline Phosphatase 95 U/L (46-116); Bilirubin, Direct 0.17 mg/dL (0.00-0.20); Bilirubin, Total 0.4 mg/dL (0.2-1.0); Total Protein 7.4 g/dL (6.4-8.2)
== END 2020-06-22 01:30 ==
PROVIDERS: PCP Nurse Practitioner Family; Visit Provider Internal Medicine Gastroenterology
DX: K74.3 Primary biliary cirrhosis (principal)
CPT/HCPCS: 36415; 80076

== ENCOUNTER 2020-07-08 02:17 | Outpatient (CLI) | payer MEDICARE, SELFPAY ==
[2020-07-08 11:51] LABS: ALT 51 U/L (14-59); AST 63 U/L (15-37); Albumin 3.6 g/dL (3.4-5.0); Alkaline Phosphatase 96 U/L (46-116); Bilirubin, Direct 0.17 mg/dL (0.00-0.20); Bilirubin, Total 0.4 mg/dL (0.2-1.0); Total Protein 7.8 g/dL (6.4-8.2)
== END 2020-07-08 02:37 ==
PROVIDERS: PCP Nurse Practitioner Family; Visit Provider Internal Medicine Gastroenterology
DX: K74.3 Primary biliary cirrhosis (principal)
CPT/HCPCS: 36415; 80076

== ENCOUNTER 2020-07-11 10:41 | Outpatient (CLI) | payer MEDICARE, SELFPAY ==
--- NOTE | 2020-07-11 09:00 | DI.RAD_ITS ---
EXAM: XR KNEE LT 2V AP,LAT CLINICAL HISTORY: annual f/u TECHNIQUE: COMPARISON: CR XR KNEE LT 1V from 07/22/2019 FINDINGS: Two views were obtained and show total knee joint replacement in position. The components appear wel l seated. No other significant bony abnormality seen. IMPRESSION: RADIATION DOSE DELIVERED: Total DLP
== END 2020-07-11 11:01 ==
PROVIDERS: PCP Nurse Practitioner Family; Referring Provider Nurse Practitioner Family; Visit Provider Student in an Organized Health Care Education/Training Program
DX: Z96.652 Presence of left artificial knee joint (principal); Z47.1 Aftercare following joint replacement surgery
CPT/HCPCS: 99213; 73560

== ENCOUNTER 2020-07-29 01:12 | Outpatient (CLI) | payer MEDICARE, SELFPAY ==
[2020-07-29 12:28] LABS: ALT 40 U/L (14-59); AST 57 U/L (15-37); Albumin 3.8 g/dL (3.4-5.0); Alkaline Phosphatase 83 U/L (46-116); Bilirubin, Direct 0.22 mg/dL (0.00-0.20); Bilirubin, Total 0.5 mg/dL (0.2-1.0); Total Protein 8.3 g/dL (6.4-8.2)
== END 2020-07-29 01:32 ==
PROVIDERS: PCP Nurse Practitioner Family; Visit Provider Internal Medicine Gastroenterology
DX: K74.3 Primary biliary cirrhosis (principal)
CPT/HCPCS: 36415; 80076

== ENCOUNTER 2020-08-22 02:57 | Outpatient (CLI) | payer MEDICARE, SELFPAY ==
[2020-08-22 12:02] LABS: ALT 30 U/L (14-59); AST 37 U/L (15-37); Albumin 3.7 g/dL (3.4-5.0); Alkaline Phosphatase 80 U/L (46-116); Bilirubin, Direct 0.18 mg/dL (0.00-0.20); Bilirubin, Total 0.5 mg/dL (0.2-1.0); Total Protein 7.9 g/dL (6.4-8.2)
== END 2020-08-22 03:17 ==
PROVIDERS: PCP Nurse Practitioner Family; Visit Provider Internal Medicine Gastroenterology
DX: K74.3 Primary biliary cirrhosis (principal)
CPT/HCPCS: 36415; 80076

== ENCOUNTER 2020-11-07 15:29 | Outpatient (REF) | payer MEDICARE, SELFPAY ==
[2020-11-07 16:17] LABS: Anion Gap 9.2 mmol/L (3-11); BUN 32 mg/dL (7-18); CO2 26.8 mmol/L (21.0-32.0); CREATININE 1.3 mg/dL (0.55-1.02); Calcium 9.2 mg/dL (8.5-10.1); Chloride 104 mmol/L (98-107); Estimated GFR 39.72 (mL/min/1.73m2); Glucose 83 mg/dL (74-106); Magnesium 2.4 mg/dL (1.8-2.4); Potassium 4.3 mmol/L (3.5-5.1); Sodium 140 mmol/L (136-145)
== END 2020-11-07 15:30 | disposition home or self-care (01) ==
LOC: NCHCN 15:29
PROVIDERS: PCP Nurse Practitioner Family; Visit Provider Nurse Practitioner Family
DX: N03.9 Chronic nephritic syndrome with unspecified morphologic changes (principal); M81.0 Age-related osteoporosis without current pathological fracture
CPT/HCPCS: 80048; 82306; 83735

== ENCOUNTER 2020-11-24 03:47 | Outpatient (CLI) | payer MEDICARE, SELFPAY ==
[2020-11-24 09:30] LABS: ALT 32 U/L (14-59); AST 36 U/L (15-37); Albumin 3.5 g/dL (3.4-5.0); Alkaline Phosphatase 147 U/L (46-116); Bilirubin, Direct 0.2 mg/dL (0.0-0.2); Bilirubin, Total 0.5 mg/dL (0.2-1.0); Total Protein 8.1 g/dL (6.4-8.2)
== END 2020-11-24 03:48 | disposition home or self-care (01) ==
PROVIDERS: PCP Nurse Practitioner Family; Visit Provider Internal Medicine Gastroenterology
DX: K74.3 Primary biliary cirrhosis (principal)
CPT/HCPCS: 36415; 80076

== ENCOUNTER 2021-03-02 02:05 | Outpatient (CLI) | payer MEDICARE, SELFPAY ==
[2021-03-02 12:34] LABS: ALT 28 U/L (14-59); AST 36 U/L (15-37); Albumin 3.5 g/dL (3.4-5.0); Alkaline Phosphatase 153 U/L (46-116); Bilirubin, Direct 0.2 mg/dL (0.0-0.2); Bilirubin, Total 0.5 mg/dL (0.2-1.0); Total Protein 7.9 g/dL (6.4-8.2)
== END 2021-03-02 02:06 | disposition home or self-care (01) ==
LOC: LBO 02:05
PROVIDERS: PCP Nurse Practitioner Family; Visit Provider Internal Medicine Gastroenterology
DX: K74.3 Primary biliary cirrhosis (principal)
CPT/HCPCS: 36415; 80076

== ENCOUNTER → 2021-03-28 13:59 | Outpatient (BNVA) | payer MEDICARE, SELFPAY | PROVIDERS: PCP Nurse Practitioner Family; Referring Provider Nurse Practitioner Family; Visit Provider Nurse Practitioner Adult Health | DX: G56.02 Carpal tunnel syndrome, left upper limb (principal); G56.22 Lesion of ulnar nerve, left upper limb | CPT/HCPCS: 95909; 99203; 99215 ==

== ENCOUNTER 2021-05-12 14:35 | Outpatient (REF) | payer MEDICARE, SELFPAY ==
[2021-05-12 18:57] LABS: Calculated LDL 117 mg/dL (<100); Cholesterol 200 mg/dL (<200); HDL Cholesterol 65 mg/dL (40-60); TSH 2.38 uIU/mL (0.36-3.74); Triglyceride 93 mg/dL (<150)
[2021-05-12 20:34] LABS: FREE T4 1.25 ng/dL (0.76-1.46)
== END 2021-05-12 14:36 | disposition home or self-care (01) ==
LOC: NCHCN 14:35
PROVIDERS: PCP Nurse Practitioner Family; Visit Provider Nurse Practitioner Family
DX: E03.8 Other specified hypothyroidism (principal); R74.8 Abnormal levels of other serum enzymes; E78.5 Hyperlipidemia, unspecified
CPT/HCPCS: 80061; 84439; 84443

== ENCOUNTER → 2021-07-03 09:13 | Outpatient (BNVA) | payer MEDICARE, SELFPAY | PROVIDERS: PCP Nurse Practitioner Family; Referring Provider Nurse Practitioner Family; Visit Provider Student in an Organized Health Care Education/Training Program | DX: M70.61 Trochanteric bursitis, right hip (principal); Z96.641 Presence of right artificial hip joint | CPT/HCPCS: 20610; J1040 ==

== ENCOUNTER 2021-07-26 02:52 | Outpatient (CLI) | payer MEDICARE, SELFPAY ==
[2021-07-26 14:20] LABS: ALT 35 U/L (14-59); AST 43 U/L (15-37); Albumin 3.8 g/dL (3.4-5.0); Alkaline Phosphatase 88 U/L (46-116); Bilirubin, Direct 0.2 mg/dL (0.0-0.2); Bilirubin, Total 0.4 mg/dL (0.2-1.0); Total Protein 8.1 g/dL (6.4-8.2)
== END 2021-07-26 02:53 | disposition home or self-care (01) ==
LOC: LBO 02:52
PROVIDERS: PCP Nurse Practitioner Family; Visit Provider Internal Medicine Gastroenterology
DX: K74.3 Primary biliary cirrhosis (principal)
CPT/HCPCS: 36415; 80076

== ENCOUNTER 2021-11-28 01:32 | Outpatient (CLI) | payer MEDICARE, SELFPAY | END 2021-11-28 01:33 | disposition home or self-care (01) | LOC: LBO 01:33 | PROVIDERS: PCP Nurse Practitioner Family; Visit Provider Internal Medicine Gastroenterology ==

== ENCOUNTER 2021-12-06 02:44 | Outpatient (CLI) | payer MEDICARE, SELFPAY ==
[2021-12-06 13:45] LABS: ALT 30 U/L (14-59); AST 37 U/L (15-37); Albumin 3.8 g/dL (3.4-5.0); Alkaline Phosphatase 104 U/L (46-116); Bilirubin, Direct 0.2 mg/dL (0.0-0.2); Bilirubin, Total 0.5 mg/dL (0.2-1.0); Total Protein 8.3 g/dL (6.4-8.2)
== END 2021-12-06 02:45 | disposition home or self-care (01) ==
LOC: LBO 02:44
PROVIDERS: PCP Nurse Practitioner Family; Visit Provider Internal Medicine Gastroenterology
DX: K74.3 Primary biliary cirrhosis (principal)
CPT/HCPCS: 36415; 80076

== ENCOUNTER 2022-01-19 02:51 | Outpatient (CLI) | payer MEDICARE, SELFPAY ==
[2022-01-19 10:44] LABS: ALT 23 U/L (14-59); AST 32 U/L (15-37); Albumin 3.5 g/dL (3.4-5.0); Alkaline Phosphatase 105 U/L (46-116); Bilirubin, Direct 0.3 mg/dL (0.0-0.2); Bilirubin, Total 0.5 mg/dL (0.2-1.0); Total Protein 7.8 g/dL (6.4-8.2)
== END 2022-01-19 02:52 | disposition home or self-care (01) ==
LOC: LBO 02:52
PROVIDERS: PCP Nurse Practitioner Family; Visit Provider Internal Medicine Gastroenterology
DX: K74.3 Primary biliary cirrhosis (principal)
CPT/HCPCS: 36415; 80076

== ENCOUNTER → 2022-04-05 08:12 | Outpatient (BNVA) | payer MEDICARE, SELFPAY | PROVIDERS: PCP Nurse Practitioner Family; Referring Provider Nurse Practitioner Family; Visit Provider Student in an Organized Health Care Education/Training Program | DX: M70.61 Trochanteric bursitis, right hip (principal) | CPT/HCPCS: 20610; J1040 ==

== ENCOUNTER 2022-05-16 13:04 | Outpatient (REF) | payer MEDICARE, SELFPAY ==
[2022-05-16 17:58] LABS: Anion Gap 6.1 mmol/L (3-11); BUN 39 mg/dL (7-18); CO2 27.9 mmol/L (21.0-32.0); CREATININE 1.4 mg/dL (0.55-1.02); Calcium 9.7 mg/dL (8.5-10.1); Chloride 106 mmol/L (98-107); Estimated GFR 38.27 (mL/min/1.73m2); FREE T4 1.54 ng/dL (0.76-1.46); Glucose 95 mg/dL (74-106); Potassium 4.3 mmol/L (3.5-5.1); Sodium 140 mmol/L (136-145)
== END 2022-05-16 13:05 | disposition home or self-care (01) ==
LOC: NCHCN 13:04
PROVIDERS: PCP Nurse Practitioner Family; Visit Provider Nurse Practitioner Family
DX: E03.8 Other specified hypothyroidism (principal); N03.9 Chronic nephritic syndrome with unspecified morphologic changes
CPT/HCPCS: 80048; 84439; 84443

== ENCOUNTER 2022-05-24 03:09 | Outpatient (CLI) | payer MEDICARE, SELFPAY ==
[2022-05-24 10:43] LABS: ALT 43 U/L (14-59); AST 55 U/L (15-37); Albumin 3.3 g/dL (3.4-5.0); Alkaline Phosphatase 89 U/L (46-116); Bilirubin, Direct 0.2 mg/dL (0.0-0.2); Bilirubin, Total 0.5 mg/dL (0.2-1.0); Total Protein 8.4 g/dL (6.4-8.2)
== END 2022-05-24 03:10 | disposition home or self-care (01) ==
LOC: LBO 03:09
PROVIDERS: PCP Nurse Practitioner Family; Visit Provider Internal Medicine Gastroenterology
DX: K74.3 Primary biliary cirrhosis (principal)
CPT/HCPCS: 36415; 80076

== ENCOUNTER 2022-05-29 14:48 | Outpatient (CLI) | payer MEDICARE, SELFPAY ==
--- NOTE | 2022-05-29 14:30 | DI.RAD_ITS ---
Exam(s) XR HIP RT COMPLETE AP PELVIS EXAM: XR HIP RT COMPLETE AP PELVIS INDICATION: right hip f/u. COMPARISON: CR XR STANDING ALIGNMENT from 07/22/2019 CR XR DEXA BONE DENSITY W/WO BEAR from 04/20/2020 TECHNIQUE: 2D digital imaging was performed. Three views. FINDINGS: There has been no change in the alignment of the right hip prosthesis or appearance of the surroundin g bone. No abnormal bony lucencies. The left hip joint space is well maintained. The sacrum is sabina nly obscured by overlying stool and bowel gas. IMPRESSION: Unremarkable right hip prosthesis. DATA REPOSITORY: RADIATION DOSE DELIVERED:
== END 2022-05-29 14:49 | disposition home or self-care (01) ==
LOC: DIORS 14:49
PROVIDERS: PCP Nurse Practitioner Family; Referring Provider Nurse Practitioner Family; Visit Provider Student in an Organized Health Care Education/Training Program
DX: M70.61 Trochanteric bursitis, right hip (principal)
CPT/HCPCS: 99214; 73502

== ENCOUNTER → 2022-06-11 01:58 | Outpatient (CLI) | payer MEDICARE, SELFPAY ==
--- NOTE | 2022-06-11 09:15 | DI.MAMMO_ITS ---
Exam(s) MAMMO SCREENING EXAM: MAMMO SCREENING CLINICAL HISTORY: SCREENING, Z12.31 TECHNIQUE: Mammograms were interpreted according to the usual protocol including computer analysis w [employer] CAD system, tomosynthesis and C-view imaging. COMPARISON: 2011 through 2019 FINDINGS: The breasts are composed of heterogeneously dense fibroglandular densities, Breast Density category C . No suspicious masses or suspicious microcalcifications are seen. No skin thickening or abnormal axillary lymph nodes are seen. There has been no significant change from prior exams. IMPRESSION: BI-RADS Category 1, Negative mammogram. Yearly screening mammography is recommended. Breast Density Category C, heterogeneously Dense. The mammogram demonstrates the patient's breast tissue is dense. Dense breast tissue is very common a nd is not abnormal but dense breast tissue can make it harder to find cancer on a mammogram. Also, de nse breast tissue may increase breast cancer risk. This information about the result of the mammogram report was provided to the patient to raise their awareness. Use this report when you speak with the patient about their risks for breast cancer, which includes their family history. At that time, you may recommend additional screening tests (Ultrasound or MRI) as they might be useful based on their r isk. A negative radiographic report should not delay biopsy if a dominant or clinically suspicious mass is present. Up to ten percent of cancers are not identified on mammography. A negative report may reinforce clinical impression. Adenosis and dense breasts may obscure an underlying neoplasm. False positive reports average 6 to 10%.
== END ==
PROVIDERS: PCP Nurse Practitioner Family; Visit Provider Nurse Practitioner Family
DX: Z12.31 Encounter for screening mammogram for malignant neoplasm of breast (principal); R92.8 Other abnormal and inconclusive findings on diagnostic imaging of breast
CPT/HCPCS: 77063; 77067

== ENCOUNTER → 2022-06-25 01:40 | Outpatient (CLI) | payer MEDICARE, SELFPAY ==
--- NOTE | 2022-06-25 07:30 | DI.MRI_ITS ---
Exam(s) MR LOWER JOINT RT WO EXAM: MR LOWER JOINT RT WO CLINICAL HISTORY: R HIP PAIN,trochanteric bursitis, m70.61 TECHNIQUE: Multiplanar multisequence MRI of Pelvis was performed COMPARISON: CR XR HIP RT COMPLETE AP PELVIS from 05/29/2022 FINDINGS: Bones: There is a right hip prosthesis which creates mild artifact in the adjacent bone and muscle. There is no fracture or contusion pattern. No significant joint effusion is present. No bone marrow e thelma is seen. The SI joints and symphysis pubis are well maintained. Musculotendinous structures: No evidence tendon tear or abnormal thickening. Fluid is noted in the g reater trochanteric bursa and around the gluteus medius tendon. A surgical scar is faintly visible. There is no abnormal fluid within the scar. Intrapelvic structures demonstrate no significant abnormality. Status post hysterectomy. IMPRESSION: Trochanteric bursitis. No evidence of tendon tear. DATA REPOSITORY:
== END ==
PROVIDERS: PCP Nurse Practitioner Family; Visit Provider Student in an Organized Health Care Education/Training Program
DX: M25.551 Pain in right hip (principal); M70.61 Trochanteric bursitis, right hip
CPT/HCPCS: 73721

== ENCOUNTER → 2022-06-29 00:56 | Outpatient (CLI) | payer MEDICARE, SELFPAY ==
--- NOTE | 2022-06-29 10:48 | DI.DEXA_ITS ---
Exam(s) XR DEXA BONE DENSITY W/WO BEAR EXAM: XR DEXA BONE DENSITY W/WO BEAR CLINICAL HISTORY: POSTMENOPAUSAL STATE, Z78.0; OSTEOPOROSIS, M81.0 TECHNIQUE: COMPARISON: CR XR DEXA BONE DENSITY W/WO BEAR from 04/20/2020 FINDINGS: Lateral Spine Image: Unremarkable. No compression deformities identified. Left hip: Total T-Score: -2.10. This is unchanged compared to the prior examination. Total Z-Score: -0.1 T- and Z-scores: Findings are consistent with osteopenia. Lumbar Spine: Total T-Score: -1.6. This compares to -1.0 on the prior examination. Total Z-Score: 1.1 T- and Z-scores: This is consistent with osteopenia. IMPRESSION: Osteopenia in the left hip and lumbar spine.
== END ==
PROVIDERS: PCP Nurse Practitioner Family; Visit Provider Nurse Practitioner Family
DX: Z78.0 Asymptomatic menopausal state (principal); Z13.820 Encounter for screening for osteoporosis; M85.89 Other specified disorders of bone density and structure, multiple sites
CPT/HCPCS: 77080

== ENCOUNTER → 2022-07-03 09:03 | Outpatient (BNVA) | payer MEDICARE, SELFPAY | PROVIDERS: PCP Nurse Practitioner Family; Referring Provider Nurse Practitioner Family; Visit Provider Student in an Organized Health Care Education/Training Program | DX: M70.61 Trochanteric bursitis, right hip (principal) | CPT/HCPCS: 99213 ==

== ENCOUNTER 2022-07-05 16:35 | Outpatient (REF) | payer MEDICARE, SELFPAY ==
[2022-07-05 17:07] LABS: TSH (W/Ref FT4) 1.81 uIU/mL (0.36-3.74)
== END 2022-07-05 16:36 | disposition home or self-care (01) ==
LOC: NCHCN 16:35
PROVIDERS: PCP Nurse Practitioner Family; Visit Provider Nurse Practitioner Family
DX: E03.8 Other specified hypothyroidism (principal)
CPT/HCPCS: 84443

== ENCOUNTER → 2022-10-29 13:40 | Outpatient (BNVA) | payer MEDICARE, SELFPAY | PROVIDERS: PCP Nurse Practitioner Family; Referring Provider Nurse Practitioner Family; Visit Provider Student in an Organized Health Care Education/Training Program | DX: G56.02 Carpal tunnel syndrome, left upper limb (principal) | CPT/HCPCS: 99213 ==

== ENCOUNTER 2022-11-12 10:35 | Outpatient (REF) | payer MEDICARE, SELFPAY ==
[2022-11-12 16:46] LABS: ALT 24 U/L (14-59); AST 33 U/L (15-37); Albumin 3.7 g/dL (3.4-5.0); Alkaline Phosphatase 79 U/L (46-116); Anion Gap 8.9 mmol/L (3-11); BUN 38 mg/dL (7-18); Bilirubin, Total 0.4 mg/dL (0.2-1.0); CO2 27.1 mmol/L (21.0-32.0); CREATININE 1.5 mg/dL (0.55-1.02); Calcium 9.6 mg/dL (8.5-10.1); Chloride 106 mmol/L (98-107); Estimated GFR 35.23 (mL/min/1.73m2); Glucose 94 mg/dL (74-106); Potassium 4.2 mmol/L (3.5-5.1); Sodium 142 mmol/L (136-145); TSH 1.03 uIU/mL (0.36-3.74); Total Protein 8.3 g/dL (6.4-8.2)
[2022-11-12 17:10] LABS: Bilirubin, Direct 0.2 mg/dL (0.0-0.2); FREE T4 1.42 ng/dL (0.76-1.46)
== END 2022-11-12 10:36 | disposition home or self-care (01) ==
LOC: NCHCN 10:35
PROVIDERS: PCP Nurse Practitioner Family; Visit Provider Nurse Practitioner Family
DX: E03.8 Other specified hypothyroidism (principal); R74.8 Abnormal levels of other serum enzymes; K74.5 Biliary cirrhosis, unspecified; E21.3 Hyperparathyroidism, unspecified
CPT/HCPCS: 80053; 80076; 84439; 84443

== ENCOUNTER 2022-11-27 06:11 | Day surgery (SDC) | payer MEDICARE, SELFPAY ==
[2022-11-27 06:15] VITALS: BP 135/57; PULSE 72; RESP 18; TEMP 36.6; O2SAT 97
--- NOTE | 2022-11-27 06:26 | W.ANESPRE ---
General Info Date of Service Date Performed: 11/27/22 Height: 5 ft 3 in Weight: 66 kg Body Mass Index (BMI): 25.7 Surgical Procedure: Operation Date: 11/27/22 07:40 Proposed Procedure Side Surgeon p Wrist ECTR Left Izaiah Feng MD Meds Allergies and Home Medications Allergies Allergy/AdvReac Type Severity Reaction Status Date / Time azathioprine Allergy Unknown Verified 11/27/22 06:34 phenylephrine Allergy Unknown Verified 11/27/22 06:34 povidone-iodine AdvReac Intermediate Other (See Verified 11/27/22 06:34 [From Betadine] Comment) Home Medication Medication Instructions Recorded ursodiol 300 mg capsule (Actigall) 600 mg PO BID 12/23/13 levothyroxine 112 mcg tablet 112 mcg PO DAILY 06/26/19 acetaminophen 500 mg tablet 1,000 mg PO Q8H PRN pain #90 tabs 07/09/19 fenofibrate 50 mg capsule 52 - 54 mg PO DAILY 07/11/20 krill oil 500 mg capsule 2,000 mg PO HS 01/10/21 magnesium 200 mg tablet 300 mg PO BID 01/10/21 polyethylene glycol 3350 17 17 g PO DAILY 01/10/21 gram/dose oral powder (Miralax) vitamin B complex (B 1 tab PO DAILY 01/10/21 Complex-Vitamin B12 tablet) calcium carbonate 600 mg calcium 600 mg PO BID 03/28/21 (1,500 mg) tablet (Calcium) Current Visit Medications: Current Medications Generic Name Dose Route Start Last Admin Trade Name Freq PRN Reason Stop Dose Admin Ringer's Solution 1,000 mls @ 80 mls/hr 11/27/22 06:00 IV 12/26/22 23:59 INFUSION SHELBY Cefazolin Sodium/Dextrose 2 gm in 50 mls @ 100 mls/hr 11/27/22 06:00 Ancef Duplex IVPB 11/27/22 16:00 PREOP SHELBY IV Miscellaneous Supplies 1 each 11/27/22 06:00 Iv Access IV 12/26/22 23:59 DIRECTED SHELBY Sodium Chloride 0 ml 11/27/22 06:00 Normal Saline Flush 10 Ml Syr IV 12/26/22 23:59 PRN PRN Sodium Chloride 0 ml 11/27/22 06:00 Normal Saline 10 Ml Vial IJ 12/26/22 23:59 DIRECTED PRN Sterile Water 0 ml 11/27/22 06:00 Water,Injection,Sterile 10 Ml Vial IJ 12/26/22 23:59 DIRECTED PRN PFSH Active Problems Active Problems: Problem Status Onset Code Trochanteric bursitis, right hip M70.61 Ulnar neuropathy of left upper extremity G56.22 Left carpal tunnel syndrome G56.02 Status post total left knee replacement 07/08/19 Z96.652 Hypothyroidism E03.9 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 07/08/19 TR Hyperparathyroidism Oral herpes simplex, not currently active Osteoarthritis of knee Osteoporosis Paresthesia Pneumocystosis Rheumatoid arthritis Sicca syndrome Trifascicular block Surgical History Surgical History History of total right hip arthroplasty Hx of appendectomy Hx of cholecystectomy Hx of hysterectomy Hx of partial thyroidectomy Hx of tonsillectomy Tobacco Smoking/Tobacco Use Status: Former Tobacco Use Alcohol Alcohol Intake: never Substance Use Substance use: Never Substance use type: does not use Vital Signs and Lab Results Vital Signs Most Recent Vital Signs in EMR: Temp Pulse Resp BP Pulse Ox 36.6 C 72 18 135/57 L 97 11/27/22 06:15 11/27/22 06:15 11/27/22 06:15 11/27/22 06:15 11/27/22 06:15 Lab Results Blood Type / Crossmatch: No Data to Display Complete Blood Count: No Data to Display Complete Metabolic Panel: Sodium 142 mmol/L (136-145) 11/12/22 09:55 Potassium 4.2 mmol/L (3.5-5.1) 11/12/22 09:55 Chloride 106 mmol/L (98-107) 11/12/22 09:55 Carbon Dioxide 27.1 mmol/L (21.0-32.0) 11/12/22 09:55 BUN 38 mg/dL (7-18) H 11/12/22 09:55 Creatinine 1.5 mg/dL (0.55-1.02) H 11/12/22 09:55 Est GFR (CKD-EPI 2020) 35.23 (mL/min/1.73m2) 11/12/22 09:55 Calcium 9.6 mg/dL (8.5-10.1) 11/12/22 09:55 Albumin 3.7 g/dL (3.4-5.0) 11/12/22 09:55 Glucose 94 mg/dL (74-106) 11/12/22 09:55 Liver Function Panel: Alanine Aminotransferase (ALT/SGPT) 24 U/L (14-59) 11/12/22 09:55 Aspartate Amino Transf (AST/SGOT) 33 U/L (15-37) 11/12/22 09:55 Coagulation Panel: No Data to Display Cardiac Panel: No Data to Display Arterial Blood Gas: No Data to Display Venous Blood Gas: No Data to Display Pancreas Panel: No Data to Display Thyroid Panel: Thyroid Stimulating Hormone (TSH) 1.03 uIU/mL (0.36-3.74) 11/12/22 09:55 Infectious Disease: No Data to Display Blood Cultures: No Data to Display Toxicology Panel: No Data to Display Imaging and Studies Imaging and Studies Study information below may be from another EMR and interpreted by another provider. Please see original notes in EMR for more complete details. Echocardiogram Summary: 12/2020: LVEF 63%, PAS 29 mmhg, 1-2+ AR. Anesthesia Assessment and Plan Anesthesia History Personal History: No History of Anesthesia Complications Family History: No Family History of Anesthesia Complications Exercise Tolerance Exercise Tolerance: Metabolic Equivalents>4 Cardiac & Pulmonary Exam Cardiac Exam: Normal S1/S2 Heart Sounds Pulmonary Exam: Clear Bilateral Breath Sounds Implantable Cardiac Device Does patient have a Pacemaker or an ICD?: No Airway Exam Known Difficult Airway: No Mallampati Class: 3 Mouth Opening: Narrow (< 3cm) Thyromental Distance: Greater than 3 cm Neck Range of Motion: Limited ROM Neck Circumference: Normal Teeth Condition: Removable Dentures/Plates Upper, Removable Dentures/Plates Lower and Edentulous ASA Classification ASA Score: ASA 3 Emergency Case?: No NPO Status NPO Status: NPO Clears >2 hours, Solids >8 hours Anesthesia Plan Resuscitation Status: Full Code Anesthesia Technique: General Anesthesia Airway Planned: Natural Airway Monitors Used: Standard Monitors Preoperative Comments:: 82 yo female for ECTR. Sig PMHx: Aortic regurg, cirrhosis, esophagitis, RA, trifasciular block, CKDIII, intersitial lung dz, hypothyroid (levothyroxine). States she has been healthy and doing well. Is followed by [facility]ology and she is doing well. has good activity tolerance per her. Discussed risks, benefits, and alternatives of GA (prop, natural airway) and regional anesthesia (median, ulnar, field block), will proceed as GA.
[2022-11-27] MEDS: Lactated Ringers 1,000 ML 80 ML IV (06:58)
[2022-11-27 07:10] VITALS: BMI 25.7
--- NOTE | 2022-11-27 07:12 | W.PM.DSUDISC ---
Date of service: 11/27/22 Time of Service: 07:15 Discharge Plan Disposition Patient Disposition: Home Condition: Good Discharge Details Reason For Visit: Left carpal tunnel syndrome Attending Provider: Izaiah Feng Primary Care Provider: Honey Montilla Home Meds and New Rx's Prescriptions: New acetaminophen 500 mg tablet 500 mg PO Q6H PRN (Reason: pain) Qty: 60 2RF ibuprofen 600 mg tablet 600 mg PO TID PRN (Reason: pain) Qty: 60 0RF Continued fenofibrate 50 mg capsule 52 - 54 mg PO DAILY vitamin B complex [B Complex-Vitamin B12] Tablet 1 tab PO DAILY krill oil 500 mg capsule 2,000 mg PO HS magnesium 200 mg tablet 300 mg PO BID polyethylene glycol 3350 [Miralax] 17 gram/dose powder 17 g PO DAILY ursodiol [Actigall] 300 MG capsule 600 mg PO BID levothyroxine 112 mcg Tablet 112 mcg PO DAILY calcium carbonate [Calcium 600] 600 mg calcium (1,500 mg) tablet 600 mg PO BID Discontinued acetaminophen 500 mg tablet 1,000 mg PO Q8H PRN (Reason: pain) Qty: 90 3RF Discharge Instructions Stand Alone Forms: Ping Beltre Tunnel Release Activity:: Elevate Remove Dressings/Wound Care:: 72 hours Shower/Bathe:: 72 hours Diet:: As Tolerated Discharge Orders Discharge Orders: Discharge Order (Routine); Ordered 11/27/22 Ordered By: Cherrie Magallon
--- NOTE | 2022-11-27 07:22 | W.PREOPHP ---
Assessment and Plan Assessment and plan (1) Left carpal tunnel syndrome: Status: Acute Assessment and plan: Sarah is an 82-year-old who has bilateral carpal tunnel syndrome, left worse than the left. She is here today for her left carpal tunnel release. I have previously discussed this with her at the office. Once again I reviewed today. I discussed the risk of the procedure to include bleeding, infection, pain, stiffness, damage nerves and vessels, continued symptoms, continued numbness, continued dysfunction, need for repeat procedures. She does have significant findings and will take some time for these to improve fully. I reviewed all this with her. All of her questions were answered. She has had no worsening of her medical history and therefore we will proceed with carpal tunnel release today on the left side. History of Present Illness Narrative: Sarah is an 82-year-old female with bilateral carpal tunnel syndrome. She is limited by dysfunction, pain, numbness, and tingling of both hands, worse on the left. She is here today for her left carpal tunnel release. Please the previous office note for complete detailed history. She denies any sick contacts. No chest pain or shortness of breath. Review of Systems All systems reviewed & are unremarkable except as noted in HPI and below PFSH All Active Problems Trochanteric bursitis, right hip (Acute) DEPO MEDROL 04/05/22; 07/03/21 Ulnar neuropathy of left upper extremity (Acute) Left carpal tunnel syndrome (Acute) Status post total left knee replacement (Acute 07/08/19) Hypothyroidism (Chronic) Primary biliary cirrhosis (Chronic) Interstitial lung disease (Chronic) Glomerulonephritis (Chronic) Medical History Abnormal thyroid stimulating hormone (TSH) level Aortic valve regurgitation Cirrhosis, biliary Constipation Elevated liver enzymes Esophagitis 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 07/08/19 TR Hyperparathyroidism Oral herpes simplex, not currently active Osteoarthritis of knee Osteoporosis Paresthesia Pneumocystosis Rheumatoid arthritis Sicca syndrome Trifascicular block Surgical History History of total right hip arthroplasty Hx of appendectomy Hx of cholecystectomy Hx of hysterectomy Hx of partial thyroidectomy Hx of tonsillectomy Social History Smoking/Tobacco Use Status: Former Tobacco Use Pack-years: 2 Smoking risk assessment performed?: Yes Alcohol Intake: never Drug use: Never Substance use type: does not use Household members: spouse Housing: house Number of Children: 2 number of grandchildren: 2 Pets and animals: Yes Pets and animals: cat(s), dog(s) and farm animals Current gender identity: female What is your relationship status?: Panel score (0-1 are the most socially isolated patients): 1 What type of physical activity do you participate in: walking and additional Details: gardening and animal chores Seatbelt use: always Do you feel safe at home: Yes Do you feel safe in your relationship?: Yes Meds Allergies and Home Medications Allergies Allergy/AdvReac Type Severity Reaction Status Date / Time azathioprine Allergy Unknown Verified 11/27/22 06:34 phenylephrine Allergy Unknown Verified 11/27/22 06:34 povidone-iodine AdvReac Intermediate Other (See Verified 11/27/22 06:34 [From Betadine] Comment) Home Medications Medication Instructions Recorded Confirmed Type ursodiol 300 mg capsule (Actigall) 600 mg PO BID 12/23/13 11/27/22 History levothyroxine 112 mcg tablet 112 mcg PO DAILY 06/26/19 11/27/22 History fenofibrate 50 mg capsule 52 - 54 mg PO DAILY 07/11/20 11/27/22 History krill oil 500 mg capsule 2,000 mg PO HS 01/10/21 11/27/22 History magnesium 200 mg tablet 300 mg PO BID 01/10/21 11/27/22 History polyethylene glycol 3350 17 17 g PO DAILY 01/10/21 11/27/22 History gram/dose oral powder (Miralax) vitamin B complex (B 1 tab PO DAILY 01/10/21 11/27/22 History Complex-Vitamin B12 tablet) calcium carbonate 600 mg calcium 600 mg PO BID 03/28/21 11/27/22 History (1,500 mg) tablet (Calcium) acetaminophen 500 mg tablet 500 mg PO Q6H PRN pain #60 tabs 11/27/22 Rx ibuprofen 600 mg tablet 600 mg PO TID PRN pain #60 tabs 11/27/22 Rx Exam Resp Auscultation: clear to auscultation bilaterally Cardio Rate: regular rate Rhythm: regular rhythm Results Last Vital Signs Temp 36.6 C 11/27/22 06:15 Pulse 72 11/27/22 06:15 Resp 18 11/27/22 06:15 BP 135/57 L 11/27/22 06:15 Pulse Ox 97 11/27/22 06:15
[2022-11-27] MEDS: Lidocaine 1% Pres-Free W/EPI 1/200,000 10 ML VIAL (07:26)
[2022-11-27] MEDS: ceFAZolin 2 GM/50 ML BAG IVPB (07:26)
[2022-11-27 07:42] VITALS: BP 119/61; PULSE 62; RESP 16; TEMP 36.1; O2SAT 93
--- NOTE | 2022-11-27 07:43 | W.PM.OP ---
Date of service: 11/27/22 Time of Service: 07:43 Operative Note Operative Note DATE OF PROCEDURE: 11/27/22 PRE-OP DIAGNOSIS: Left Carpal Tunnel Syndrome POST-OP DIAGNOSIS: same PROCEDURE: Left Endoscopic Carpal Tunnel Release SURGEON: Izaiah Feng ANESTHESIA TYPE: General:No Airway Refer to Anesthesia Record ESTIMATED BLOOD LOSS: 0 PATHOLOGY: none sent TOURNIQUET TIME: 3 COMPLICATIONS: None Patient was transported to: same day Patient's condition: stable Indications: I have seen Sarah in clinic for symptoms of carpal tunnel syndrome. The numbness, tingling, and pain limited function. Clinical exam findings with nerve conduction tests confirmed the diagnosis of carpal tunnel syndrome. Nonoperative measures such as bracing, time, activity modifications had been tried but disability and pain persisted. I discussed carpal tunnel release with the patient. I reviewed the risks of the procedure to include, but not limited to, bleeding, infection, pain, stiffness, incomplete release, damage to nerves or vessels, persistent numbness, recurrence. Despite these risks, the patient elected to proceed. Findings: There was tightened carpal tunnel. This was dilated and released successfully with the endoscopic with increased space within the tunnel. The antebrachial fascia was released proximally freeing the median nerve at the wrist. Procedure Description: Sarah was greeted in the preoperative holding area where the correct side was identified and marked. The consent was reviewed with the patient and signed. The history and physical was updated. All questions were answered. She was taken back to the operating room. The patient was placed into the supine position on the operating room table with the left arm on an arm board. A nonsterile tourniquet was placed high onto the arm. All bony prominences were well padded. Prophylactic antibiotics in the form of Cefazolin were administered. The left arm was then prepped with Chloraprep and draped in a standard fashion with stockinette and extremity drape. A timeout to confirm correct identity, side and site, procedure, allergies, anesthesia, and medical concerns was performed. The surgical site was marked in the volar wrist creases in line with the radial border of the fourth ray. This area was anesthetized with approximately 6cc of 1% Lidocaine. The limb was then exsanguinated with an Esmarch. The skin was incised with a 15 blade, approximately 1cm. The skin only was cut and the deeper tissue was dissected bluntly with a tenotomy scissor, avoiding passing nerve and venous structures. The fascia was penetrated and opened bluntly. A two-prong skin hook was placed under this proximal fascial edge. A series of hamate finders were used to identify and dilate the carpal tunnel. Synovial elevator was used to free synovial attachments to the underside of the transverse carpal ligament. My thumb was kept in the palm to alexandru the distal extent of the carpal tunnel and correctly position the hand. The [employer] endoscope was inserted without difficulty and without resistance. Excellent visualization showed horizontally running fibers of the transverse carpal ligament (TCL). The distal extent of the TCL was visualized and the end of the scope palpated with the thumb. The blade was elevated and withdrawn from distal to proximal. The TCL was split into two flaps. The endoscope was reinserted to confirm complete release and any remnant ligament was incised. The scope was withdrawn and the proximal aspect of the carpal tunnel was grossly inspected and appeared release with the median nerve visible. The antebrachial fascia at the level of the wrist was then freed from the overlying skin and then the underlying median nerve with blunt dissection. This was transected longitudinally for about 3cm proximal to the wrist incision. The wound was then irrigated with easy flow of irrigant distally and proximally. The incision was closed with a single 4-0 Nylon suture. The wound was dressed with Xeroform, Gauze, Kerlix and Josué. The tourniquet was deflated with the initial dressing and held with some pressure. Blood flow returned easily to all digits with capillary refill less than 2 seconds. The patient tolerated the procedure well and was returned to the Same Day Surgery area in a stable condition suffering no known complication.
[2022-11-27 08:10] VITALS: BP 139/65; PULSE 56; RESP 18; TEMP 36.4; O2SAT 99
--- NOTE | 2022-11-27 11:24 | W.ANESPOSTOP ---
Postoperative Evaluation Date, Time and Location Date Performed: 11/27/22 Time Performed: 08:10 Patient Location: Day Surgery Unit Vital Signs Most Recent Imported Vital Signs: Most Recent Vital Signs Temp Pulse Resp BP Pulse Ox 36.4 C L 56 L 18 139/65 99 11/27/22 08:10 11/27/22 08:10 11/27/22 08:10 11/27/22 08:10 11/27/22 08:10 Pain Score Most Recent Pain Score: Most Recent Pain Score Pain Level 0 11/27/22 08:10 Assessment Mental Status: Awake (Alert & Oriented to Patient Baseline) Airway and Respiratory Function: Patent airway with normal (patient baseline) respiratory exam Cardiovascular Function: Hemodynamically Stable Hydration Status: Adequately Hydrated Nausea & Vomiting: No Nausea or Vomiting Pain: Pt. Denies Any Pain Peripheral Nerve Block: Patient did not receive a nerve block
== END 2022-11-27 08:30 | disposition home or self-care (01) ==
PROVIDERS: PCP Nurse Practitioner Family; Visit Provider Student in an Organized Health Care Education/Training Program
PROC: 01N54ZZ Release Median Nerve, Percutaneous Endoscopic Approach (ICD-10-PCS; CPT 29848; principal; 2022-11-27 07:30)
DX: G56.02 Carpal tunnel syndrome, left upper limb (principal)
CPT/HCPCS: 29848; J0690; J2704

== ENCOUNTER → 2022-12-07 10:13 | Outpatient (BNVA) | payer MEDICARE, SELFPAY | PROVIDERS: PCP Nurse Practitioner Family; Referring Provider Nurse Practitioner Family; Visit Provider Student in an Organized Health Care Education/Training Program | DX: Z47.89 Encounter for other orthopedic aftercare (principal); R20.0 Anesthesia of skin ==

== ENCOUNTER 2023-01-01 02:34 | Outpatient (CLI) | payer MEDICARE, SELFPAY ==
[2023-01-01 12:56] LABS: Bilirubin Negative (Negative); Blood Negative (Negative); Clarity Clear (Clear); Glucose Negative (Negative); Ketones Negative (Negative); Leukocyte Esterase Small (Negative); Nitrite Negative (Negative); Urobilinogen 0.2 mg/dL (Up to 0.2)
[2023-01-01 13:17] LABS: Bacteria Few HPF (Negative); C & S Indicated? Yes; Casts Negative LPF (Negative); Crystals Negative HPF (Negative); Epithelial Cells Few HPF (Negative); Mucus Negative (Negative); RBC 0-2 HPF (0-2)
[2023-01-01 13:33] LABS: ALT 26 U/L (14-59); AST 33 U/L (15-37); Albumin 3.4 g/dL (3.4-5.0); Alkaline Phosphatase 84 U/L (46-116); BUN 33 mg/dL (7-18); Bilirubin, Direct 0.2 mg/dL (0.0-0.2); Bilirubin, Total 0.4 mg/dL (0.2-1.0); CREATININE 1.5 mg/dL (0.55-1.02); Estimated GFR 35.01 (mL/min/1.73m2); Total Protein 7.9 g/dL (6.4-8.2)
== END 2023-01-01 02:35 | disposition home or self-care (01) ==
PROVIDERS: PCP Nurse Practitioner Family; Visit Provider Internal Medicine Gastroenterology
DX: R79.89 Other specified abnormal findings of blood chemistry (principal); K74.3 Primary biliary cirrhosis; R82.998 Other abnormal findings in urine
CPT/HCPCS: 36415; 80076; 84520; 81003; 81015; 82565; 87086

== ENCOUNTER 2023-01-30 11:37 | Day surgery (SDC) | payer MEDICARE, SELFPAY ==
[2023-01-30 12:17] VITALS: BP 142/80; PULSE 95; RESP 18; TEMP 36.2; O2SAT 93
[2023-01-30] MEDS: Lactated Ringers 1,000 ML 80 ML IV (12:40)
--- NOTE | 2023-01-30 13:27 | ANES.PREOP_ITS ---
General Info Date of Service Date Performed: 01/30/23 Height: 5 ft 3 in Weight: 68.8 kg Body Mass Index (BMI): 26.9 Surgical Procedure: Operation Date: 01/30/23 13:25 Proposed Procedure Side Surgeon p Wrist ECTR Right Izaiah Feng MD Actual Procedure Side Surgeon p Wrist ECTR Right Izaiah Feng MD Pre-Op Diagnosis Post-Op Diagnosis Right carpal tunnel syndrome Meds Allergies and Home Medications Allergies Allergy/AdvReac Type Severity Reaction Status Date / Time azathioprine Allergy Unknown Verified 01/29/23 10:15 phenylephrine Allergy Unknown Verified 01/29/23 10:15 povidone-iodine AdvReac Intermediate Other (See Verified 01/29/23 10:15 [From Betadine] Comment) Home Medication Medication Instructions Recorded ursodiol 300 mg capsule (Actigall) 600 mg PO BID 12/23/13 levothyroxine 112 mcg tablet 112 mcg PO DAILY 06/26/19 fenofibrate 50 mg capsule 52 - 54 mg PO DAILY 07/11/20 krill oil 500 mg capsule 2,000 mg PO HS 01/10/21 magnesium 200 mg tablet 300 mg PO BID 01/10/21 polyethylene glycol 3350 17 17 g PO DAILY 01/10/21 gram/dose oral powder (Miralax) vitamin B complex (B 1 tab PO DAILY 01/10/21 Complex-Vitamin B12 tablet) calcium carbonate 600 mg calcium 600 mg PO BID 03/28/21 (1,500 mg) tablet (Calcium) acetaminophen 500 mg tablet 500 mg PO Q6H PRN pain #60 tabs 11/27/22 ibuprofen 600 mg tablet 600 mg PO TID PRN pain #60 tabs 11/27/22 Current Visit Medications: Current Medications Generic Name Dose Route Start Last Admin Trade Name Freq PRN Reason Stop Dose Admin Acetaminophen 650 mg 01/30/23 09:59 Acetaminophen 325 Mg Tab PO 03/01/23 09:58 Q4H PRN PRN Hydrocodone Bitart/Acetaminophen 0 tab 01/30/23 09:59 Hydrocodone 5/Acetaminophen 325 Tab PO 03/01/23 09:58 Q3H PRN PRN Pain Ringer's Solution 1,000 mls @ 80 mls/hr 01/30/23 06:00 01/30/23 12:40 IV 02/28/23 23:59 80 mls/hr INFUSION SHELBY Administration Cefazolin Sodium/Dextrose 2 gm in 50 mls @ 100 mls/hr 01/30/23 06:00 Ancef Duplex IVPB 02/28/23 23:59 PREOP SHELBY IV Miscellaneous Supplies 1 each 01/30/23 06:00 Iv Access IV 02/28/23 23:59 DIRECTED SHELBY Sodium Chloride 0 ml 01/30/23 06:00 Normal Saline Flush 10 Ml Syr IV 02/28/23 23:59 PRN PRN Sodium Chloride 0 ml 01/30/23 06:00 Normal Saline 10 Ml Vial IJ 02/28/23 23:59 DIRECTED PRN Sterile Water 0 ml 01/30/23 06:00 Water,Injection,Sterile 10 Ml Vial IJ 02/28/23 23:59 DIRECTED PRN PFSH Active Problems Active Problems: Problem Status Onset Code Interstitial lung disease J84.9 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 07/08/19 TR Hyperparathyroidism MPA (microscopic polyangiitis) Oral herpes simplex, not currently active Osteoarthritis of knee Osteoporosis Paresthesia Pauci-immune RPGN (rapidly progressive glomerulonephritis) Pneumocystosis Rheumatoid arthritis Sicca syndrome Trifascicular block Surgical History Surgical History History of total right hip arthroplasty Hx of appendectomy Hx of cholecystectomy Hx of hysterectomy Hx of partial thyroidectomy Hx of tonsillectomy Left carpal tunnel syndrome S/P ECTR: 11/27/2022 Tobacco Smoking/Tobacco Use Status: Former Tobacco Use Alcohol Alcohol Intake: never Substance Use Substance use: Never Substance use type: does not use Vital Signs and Lab Results Vital Signs Most Recent Vital Signs in EMR: Most Recent Vital Signs Temp Pulse Resp BP Pulse Ox 36.2 C L 95 H 18 142/80 H 93 01/30/23 12:17 01/30/23 12:17 01/30/23 12:17 01/30/23 12:17 01/30/23 12:17 Lab Results Blood Type / Crossmatch: No Data to Display Complete Blood Count: No Data to Display Complete Metabolic Panel: BUN 33 mg/dL (7-18) H 01/01/23 12:38 Creatinine 1.5 mg/dL (0.55-1.02) H 01/01/23 12:38 Est GFR (CKD-EPI 2020) 35.01 (mL/min/1.73m2) 01/01/23 12:38 Albumin 3.4 g/dL (3.4-5.0) 01/01/23 12:38 Liver Function Panel: Alanine Aminotransferase (ALT/SGPT) 26 U/L (14-59) 01/01/23 12: 38 Aspartate Amino Transf (AST/SGOT) 33 U/L (15-37) 01/01/23 12:38 Coagulation Panel: No Data to Display Cardiac Panel: No Data to Display Arterial Blood Gas: No Data to Display Venous Blood Gas: No Data to Display Pancreas Panel: No Data to Display Thyroid Panel: No Data to Display Infectious Disease: No Data to Display Blood Cultures: No Data to Display Toxicology Panel: No Data to Display Imaging and Studies Imaging and Studies Study information below may be from another EMR and interpreted by another provider. Please see original notes in EMR for more complete details. Echocardiogram Summary: 12/2020: LVEF 63%, PAS 29 mmhg, 1-2+ AR. Anesthesia Assessment and Plan Anesthesia History Personal History: No History of Anesthesia Complications Family History: No Family History of Anesthesia Complications Exercise Tolerance Exercise Tolerance: Metabolic Equivalents>4 Pertinent Negatives Pertinent Negatives: No Symptoms of GERD, No Major Cardiovascular Symptoms or Complaints, No Major Pulmonary Symptoms or Complaints and No History of CVA/TIA Cardiac & Pulmonary Exam Cardiac Exam: Normal S1/S2 Heart Sounds Pulmonary Exam: Clear Bilateral Breath Sounds Implantable Cardiac Device Does patient have a Pacemaker or an ICD?: No Airway Exam Known Difficult Airway: No Mallampati Class: 3 Mouth Opening: Narrow (< 3cm) Thyromental Distance: Greater than 3 cm Neck Range of Motion: Limited ROM Neck Circumference: Normal Teeth Condition: Removable Dentures/Plates Upper, Removable Dentures/Plates Lower and Edentulous ASA Classification ASA Score: ASA 3 Emergency Case?: No NPO Status NPO Status: NPO Clears >2 hours, Solids >8 hours Anesthesia Plan Resuscitation Status: Full Code Anesthesia Technique: General Anesthesia Airway Planned: Natural Airway Monitors Used: Standard Monitors
[2023-01-30 13:28] VITALS: BMI 26.9
--- NOTE | 2023-01-30 13:29 | W.PREOPHP ---
Assessment and Plan Assessment and plan (1) Right carpal tunnel syndrome: Status: Acute Assessment and plan: Sarah is an 82-year-old female who has known carpal tunnel syndrome on the right side. She appears to had a successful left carpal tunnel release about 2 months ago. She is here for the right side. Once again I reviewed the surgery with her. I discussed the risk of the surgery to include bleeding, infection, pain, stiffness, damage to vessels, damage to the nerve, inflammatory or scarring around the nerve. Despite these risks, she elects to proceed. History of Present Illness History of Present Illness Chief Complaint: Right carpal tunnel syndrome Narrative: Sarah is an 82-year-old female who has known carpal tunnel syndrome of the right side. She underwent a left carpal tunnel release about 2 months ago with good results. She is here today for the right carpal tunnel release. She denies any new symptoms. No new chest pain or shortness of breath. Review of Systems All systems reviewed & are unremarkable except as noted in HPI and below PFSH All Active Problems Interstitial lung disease (Chronic) Primary biliary cirrhosis (Chronic) Glomerulonephritis (Chronic) Hypothyroidism (Chronic) Status post total left knee replacement (Acute 07/08/19) Ulnar neuropathy of left upper extremity (Acute) Trochanteric bursitis, right hip (Acute) DEPO MEDROL 04/05/22; 07/03/21 Right carpal tunnel syndrome (Acute) Medical History Abnormal thyroid stimulating hormone (TSH) level Aortic valve regurgitation Cirrhosis, biliary Constipation Elevated liver enzymes Esophagitis 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 07/08/19 TR Hyperparathyroidism MPA (microscopic polyangiitis) Oral herpes simplex, not currently active Osteoarthritis of knee Osteoporosis Paresthesia Pauci-immune RPGN (rapidly progressive glomerulonephritis) Pneumocystosis Rheumatoid arthritis Sicca syndrome Trifascicular block Surgical History History of total right hip arthroplasty Hx of appendectomy Hx of cholecystectomy Hx of hysterectomy Hx of partial thyroidectomy Hx of tonsillectomy Left carpal tunnel syndrome S/P ECTR: 11/27/2022 Social History Smoking/Tobacco Use Status: Former Tobacco Use Quit Date: 09/16/71 Pack-years: 2 Smoking risk assessment performed?: Yes Alcohol Intake: never Drug use: Never Substance use type: does not use Household members: spouse Housing: house Number of Children: 2 number of grandchildren: 2 Pets and animals: Yes Pets and animals: cat(s), dog(s) and farm animals Current gender identity: female What is your relationship status?: Panel score (0-1 are the most socially isolated patients): 1 What type of physical activity do you participate in: walking and additional Details: gardening and animal chores Seatbelt use: always Do you feel safe at home: Yes Do you feel safe in your relationship?: Yes Meds Allergies and Home Medications Allergies Allergy/AdvReac Type Severity Reaction Status Date / Time azathioprine Allergy Unknown Verified 01/29/23 10:15 phenylephrine Allergy Unknown Verified 01/29/23 10:15 povidone-iodine AdvReac Intermediate Other (See Verified 01/29/23 10:15 [From Betadine] Comment) Home Medications Medication Instructions Recorded Confirmed Type ursodiol 300 mg capsule (Actigall) 600 mg PO BID 12/23/13 01/30/23 History levothyroxine 112 mcg tablet 112 mcg PO DAILY 06/26/19 01/30/23 History fenofibrate 50 mg capsule 52 - 54 mg PO DAILY 07/11/20 01/30/23 History krill oil 500 mg capsule 2,000 mg PO HS 01/10/21 01/30/23 History magnesium 200 mg tablet 300 mg PO BID 01/10/21 01/30/23 History polyethylene glycol 3350 17 17 g PO DAILY 01/10/21 01/30/23 History gram/dose oral powder (Miralax) vitamin B complex (B 1 tab PO DAILY 01/10/21 01/30/23 History Complex-Vitamin B12 tablet) calcium carbonate 600 mg calcium 600 mg PO BID 03/28/21 01/30/23 History (1,500 mg) tablet (Calcium) acetaminophen 500 mg tablet 500 mg PO Q6H PRN pain #60 tabs 11/27/22 01/30/23 Rx ibuprofen 600 mg tablet 600 mg PO TID PRN pain #60 tabs 11/27/22 01/30/23 Rx Exam Resp Effort & Inspection: normal respiratory effort Auscultation: clear to auscultation bilaterally Cardio Rate: regular rate Rhythm: regular rhythm Results Last Vital Signs Temp 36.2 C L 01/30/23 12:17 Pulse 95 H 01/30/23 12:17 Resp 18 01/30/23 12:17 BP 142/80 H 01/30/23 12:17 Pulse Ox 93 01/30/23 12:17
[2023-01-30] MEDS: ceFAZolin 2 GM/50 ML BAG IVPB (13:36)
[2023-01-30] MEDS: Lidocaine 1% Pres-Free W/EPI 1/200,000 10 ML VIAL (13:44)
[2023-01-30 13:50] VITALS: BP 131/66; PULSE 55; RESP 18; TEMP 36.5; O2SAT 95
--- NOTE | 2023-01-30 13:55 | W.PM.DSUDISC ---
Date of service: 01/30/23 Time of Service: 13:59 Discharge Plan Disposition Patient Disposition: Home Discharge Details Reason For Visit: R ECTR Attending Provider: Izaiah Feng Primary Care Provider: Honey Montilla Home Meds and New Rx's Prescriptions: New acetaminophen 500 mg tablet 1,000 mg PO TID Qty: 90 0RF hydrocodone-acetaminophen 5-325 mg tablet 1 tab PO Q6H PRN (Reason: pain) Qty: 6 0RF ibuprofen 600 mg tablet 600 mg PO TID PRN (Reason: pain) Qty: 90 0RF Continued fenofibrate 50 mg capsule 52 - 54 mg PO DAILY vitamin B complex [B Complex-Vitamin B12] Tablet 1 tab PO DAILY krill oil 500 mg capsule 2,000 mg PO HS magnesium 200 mg tablet 300 mg PO BID polyethylene glycol 3350 [Miralax] 17 gram/dose powder 17 g PO DAILY ursodiol [Actigall] 300 MG capsule 600 mg PO BID levothyroxine 112 mcg Tablet 112 mcg PO DAILY calcium carbonate [Calcium 600] 600 mg calcium (1,500 mg) tablet 600 mg PO BID Discontinued acetaminophen 500 mg tablet 500 mg PO Q6H PRN (Reason: pain) Qty: 60 2RF ibuprofen 600 mg tablet 600 mg PO TID PRN (Reason: pain) Qty: 60 0RF Discharge Instructions Stand Alone Forms: Ping [place] Tunnel Release Referrals: Izaiah Feng MD [ [facility] STAFF PHYSICIAN] - Activity:: Activity as Tolerated Remove Dressings/Wound Care:: 48 hours Shower/Bathe:: 48 hours Diet:: As Tolerated Discharge Orders Discharge Orders: Discharge Order (Routine); Ordered 01/30/23 Ordered By: Gaurav Louis DS: Diagnosis Discharge Diagnosis (1) Right carpal tunnel syndrome: Status: Acute
[2023-01-30 14:25] VITALS: BP 122/62; PULSE 65; RESP 18; TEMP 36.5; O2SAT 96
--- NOTE | 2023-01-30 14:48 | W.ANESPOSTOP ---
Postoperative Evaluation Date, Time and Location Date Performed: 01/30/23 Time Performed: 14:48 Patient Location: Day Surgery Unit Vital Signs Most Recent Imported Vital Signs: Most Recent Vital Signs Temp Pulse Resp BP Pulse Ox 36.5 C 65 18 122/62 96 01/30/23 14:25 01/30/23 14:25 01/30/23 14:25 01/30/23 14:25 01/30/23 14:25 Pain Score Most Recent Pain Score: Most Recent Pain Score Pain Level 0 01/30/23 14:25 Assessment Mental Status: Awake (Alert & Oriented to Patient Baseline) Airway and Respiratory Function: Patent airway with normal (patient baseline) respiratory exam Cardiovascular Function: Hemodynamically Stable Hydration Status: Adequately Hydrated Nausea & Vomiting: No Nausea or Vomiting Pain: Pt. Denies Any Pain Peripheral Nerve Block: Patient did not receive a nerve block
--- NOTE | 2023-01-31 07:37 | W.PM.OP ---
Date of service: 01/30/23 Time of Service: 14:00 Operative Note Operative Note DATE OF PROCEDURE: 01/30/23 PRE-OP DIAGNOSIS: Right Carpal Tunnel Syndrome POST-OP DIAGNOSIS: same PROCEDURE: Right Endoscopic Carpal Tunnel Release SURGEON: Izaiah Feng ANESTHESIA TYPE: General:No Airway Refer to Anesthesia Record ESTIMATED BLOOD LOSS: 0 PATHOLOGY: none sent TOURNIQUET TIME: 6 COMPLICATIONS: None Patient was transported to: same day Patient's condition: stable Indications: I have seen Sarah in clinic for symptoms of carpal tunnel syndrome. The numbness, tingling, and pain limited function. Clinical exam findings with nerve conduction tests confirmed the diagnosis of carpal tunnel syndrome. Nonoperative measures such as bracing, time, activity modifications had been tried but disability and pain persisted. I discussed carpal tunnel release with the patient. I reviewed the risks of the procedure to include, but not limited to, bleeding, infection, pain, stiffness, incomplete release, damage to nerves or vessels, persistent numbness, recurrence. Despite these risks, the patient elected to proceed. Findings: There was tightened carpal tunnel. This was dilated and released successfully with the endoscopic with increased space within the tunnel. The antebrachial fascia was released proximally freeing the median nerve at the wrist. Procedure Description: Sarah was greeted in the preoperative holding area where the correct side was identified and marked. The consent was reviewed with the patient and signed. The history and physical was updated. All questions were answered. She was taken back to the operating room. The patient was placed into the supine position on the operating room table with the right arm on an arm board. A nonsterile tourniquet was placed high onto the arm. All bony prominences were well padded. Prophylactic antibiotics in the form of Cefazolin were administered. The right arm was then prepped with Chloraprep and draped in a standard fashion with stockinette and extremity drape. A timeout to confirm correct identity, side and site, procedure, allergies, anesthesia, and medical concerns was performed. The surgical site was marked in the volar wrist creases in line with the radial border of the fourth ray. This area was anesthetized with approximately 6cc of 1% Lidocaine. The limb was then exsanguinated with an Esmarch. The skin was incised with a 15 blade, approximately 1cm. The skin only was cut and the deeper tissue was dissected bluntly with a tenotomy scissor, avoiding passing nerve and venous structures. The fascia was penetrated and opened bluntly. A two-prong skin hook was placed under this proximal fascial edge. A series of hamate finders were used to identify and dilate the carpal tunnel. Synovial elevator was used to free synovial attachments to the underside of the transverse carpal ligament. My thumb was kept in the palm to alexandru the distal extent of the carpal tunnel and correctly position the hand. The Microaire endoscope was inserted without difficulty and without resistance. Excellent visualization showed horizontally running fibers of the transverse carpal ligament (TCL). The distal extent of the TCL was visualized and the end of the scope palpated with the thumb. The blade was elevated and withdrawn from distal to proximal. The TCL was split into two flaps. The endoscope was reinserted to confirm complete release and any remnant ligament was incised. The scope was withdrawn and the proximal aspect of the carpal tunnel was grossly inspected and appeared release with the median nerve visible. The antebrachial fascia at the level of the wrist was then freed from the overlying skin and then the underlying median nerve with blunt dissection. This was transected longitudinally for about 3cm proximal to the wrist incision. The wound was then irrigated with easy flow of irrigant distally and proximally. The incision was closed with a single 4-0 Nylon suture. The wound was dressed with Xeroform, Gauze, Kerlix and Josué. The tourniquet was deflated with the initial dressing and held with some pressure. Blood flow returned easily to all digits with capillary refill less than 2 seconds. The patient tolerated the procedure well and was returned to the Same Day Surgery area in a stable condition suffering no known complication.
== END 2023-01-30 14:52 | disposition home or self-care (01) ==
PROVIDERS: PCP Nurse Practitioner Family; Visit Provider Student in an Organized Health Care Education/Training Program
PROC: 01N54ZZ Release Median Nerve, Percutaneous Endoscopic Approach (ICD-10-PCS; CPT 29848; principal; 2023-01-30 13:15)
DX: G56.01 Carpal tunnel syndrome, right upper limb (principal)
CPT/HCPCS: 29848; J0690

== ENCOUNTER → 2023-02-08 09:57 | Outpatient (BNVA) | payer MEDICARE, SELFPAY | PROVIDERS: PCP Nurse Practitioner Family; Referring Provider Nurse Practitioner Family; Visit Provider Physician Assistant | DX: Z47.89 Encounter for other orthopedic aftercare (principal); R20.0 Anesthesia of skin ==

== ENCOUNTER 2023-02-15 02:23 | Outpatient (CLI) | payer MEDICARE, SELFPAY ==
[2023-02-15 16:37] LABS: BUN 38 mg/dL (7-18); CREATININE 1.6 mg/dL (0.55-1.02)
== END 2023-02-15 02:24 | disposition home or self-care (01) ==
PROVIDERS: PCP Nurse Practitioner Family; Visit Provider Internal Medicine Gastroenterology
DX: R79.89 Other specified abnormal findings of blood chemistry (principal)
CPT/HCPCS: 36415; 84520; 82565

== ENCOUNTER 2023-02-18 15:19 | Outpatient (REF) | payer MEDICARE, SELFPAY ==
[2023-02-18 11:51] LABS: Bilirubin Negative (Negative); Blood Negative (Negative); Clarity Clear (Clear); Glucose Negative (Negative); Ketones Negative (Negative); Leukocyte Esterase Trace (Negative); Nitrite Negative (Negative); Specific Gravity 1.015 (1.005-1.025); Urobilinogen 0.2 mg/dL (Up to 0.2)
== END 2023-02-18 15:20 | disposition home or self-care (01) ==
LOC: LBN 15:19
PROVIDERS: PCP Nurse Practitioner Family; Visit Provider Internal Medicine Gastroenterology
DX: R79.89 Other specified abnormal findings of blood chemistry (principal); R82.998 Other abnormal findings in urine
CPT/HCPCS: 81003

== ENCOUNTER → 2023-02-22 09:53 | Outpatient (BNVA) | payer MEDICARE, SELFPAY | PROVIDERS: PCP Nurse Practitioner Family; Referring Provider Nurse Practitioner Family; Visit Provider Student in an Organized Health Care Education/Training Program | DX: M70.61 Trochanteric bursitis, right hip (principal) | CPT/HCPCS: 20610; J1040 ==

== ENCOUNTER → 2023-03-29 09:14 | Outpatient (BNVA) | payer MEDICARE, SELFPAY | PROVIDERS: PCP Nurse Practitioner Family; Referring Provider Nurse Practitioner Family; Visit Provider Student in an Organized Health Care Education/Training Program | DX: Z47.89 Encounter for other orthopedic aftercare (principal); G56.22 Lesion of ulnar nerve, left upper limb; M70.61 Trochanteric bursitis, right hip ==

== ENCOUNTER 2023-05-30 02:17 | Outpatient (CLI) | payer MEDICARE, SELFPAY ==
[2023-05-30 11:47] LABS: ALT 22 U/L (14-59); AST 29 U/L (15-37); Albumin 3.5 g/dL (3.4-5.0); Alkaline Phosphatase 76 U/L (46-116); Anion Gap 6.5 mmol/L (3-11); BUN 42 mg/dL (7-18); Bilirubin, Total 0.4 mg/dL (0.2-1.0); CO2 26.5 mmol/L (21.0-32.0); CREATININE 1.5 mg/dL (0.55-1.02); Calcium 9.4 mg/dL (8.5-10.1); Chloride 104 mmol/L (98-107); Estimated GFR 35.01 (mL/min/1.73m2); Glucose 93 mg/dL (74-106); Potassium 4.4 mmol/L (3.5-5.1); Sodium 137 mmol/L (136-145); Total Protein 8.3 g/dL (6.4-8.2)
== END 2023-05-30 02:18 | disposition home or self-care (01) ==
LOC: LBO 02:17
PROVIDERS: PCP Nurse Practitioner Family; Visit Provider Internal Medicine Gastroenterology
DX: K74.3 Primary biliary cirrhosis (principal)
CPT/HCPCS: 36415; 80053

== ENCOUNTER → 2023-06-06 02:56 | Outpatient (CLI) | payer MEDICARE, SELFPAY ==
--- NOTE | 2023-06-06 | DI.US_ITS ---
Exam(s) US RENAL EXAM: US RENAL CLINICAL HISTORY: RENAL INSUFFICIENCY,N28.9. TECHNIQUE: Dotson scale, color and spectral Doppler were used. COMPARISON: US US ABDOMEN from 02/29/2020 FINDINGS: Renal size in cm: Right: 9.7. Left: 10.7. Echogenicity: Normal. Hydronephrosis: No. Cyst or mass: No. Nephrolithiasis: No. Other findings: None. Bladder:Normal. Ureteral jets: Right: Not visualized on this examination. Left: Not visualized on this examination. Prevoid vol:139 cc Postvoid vol:Patient was unable to void. Renal color flow: Symmetric and within normal limits. IMPRESSION: No evidence of a renal mass or hydronephrosis sonographically. DATA REPOSITORY:
== END ==
PROVIDERS: PCP Nurse Practitioner Family; Visit Provider Internal Medicine Gastroenterology
DX: N28.9 Disorder of kidney and ureter, unspecified (principal)
CPT/HCPCS: 76770

== ENCOUNTER 2023-06-11 02:37 | Outpatient (CLI) | payer MEDICARE, SELFPAY ==
[2023-06-11 12:15] LABS: Abs Immature Grans 0.02 10^3/uL (0.0-0.06); Absolute Basophil Count 0.06 10^3/uL (0.0-0.2); Absolute Eosinophil Count 0.21 10^3/uL (0.0-0.7); Absolute Lymphocyte Count 1.31 10^3/uL (1.2-3.4); Absolute Monocyte Count 0.64 10^3/uL (0.1-0.8); Absolute Neutrophil Count 4.21 10^3/uL (1.2-6.7); Basophils % 0.9; Eosinophils % 3.3; HGB 11.6 g/dL (11.2-15.7); Immature Grans % 0.3; Lymphocytes % 20.3; MCH 28.4 pg (27.0-33.0); MCHC 31.4 % (32.0-36.0); MCV 91 fL (80-95); MPV 10.8 fL (8.0-11.0); Monocytes % 9.9; Neutrophils % 65.3; Platelet Count 250 10^3/uL (130-400); RBC 4.09 10^6/uL (3.93-5.22); RDW 15.1 % (11.7-14.6); RDW-SD 50.3 fL; WBC 6.45 10^3/uL (4.4-10.8)
[2023-06-11 13:00] LABS: ALT 31 U/L (14-59); AST 36 U/L (15-37); Albumin 3.5 g/dL (3.4-5.0); Alkaline Phosphatase 78 U/L (46-116); BUN 39 mg/dL (7-18); Bilirubin, Total 0.3 mg/dL (0.2-1.0); CREATININE 1.5 mg/dL (0.55-1.02); Calcium 9.8 mg/dL (8.5-10.1); Chloride 104 mmol/L (98-107); Estimated GFR 35.01 (mL/min/1.73m2); Glucose 92 mg/dL (74-106); Magnesium 2.4 mg/dL (1.8-2.4); PHOSPHORUS 4.2 mg/dL (2.6-4.7); Potassium 4.3 mmol/L (3.5-5.1); Sodium 139 mmol/L (136-145); Total Protein 8.3 g/dL (6.4-8.2)
[2023-06-11 13:45] LABS: Vitamin D 25 Total 62.1 ng/mL (30-100)
== END 2023-06-11 02:38 | disposition home or self-care (01) ==
PROVIDERS: PCP Nurse Practitioner Family; Visit Provider Internal Medicine Gastroenterology
DX: K74.3 Primary biliary cirrhosis (principal); N28.9 Disorder of kidney and ureter, unspecified
CPT/HCPCS: 36415; 80053; 82306; 83735; 84100; 85025

== ENCOUNTER 2023-06-12 13:13 | Outpatient (REF) | payer MEDICARE, SELFPAY ==
[2023-06-12 18:03] LABS: COMMENT (LAB VIEW ONLY) 36.23 mg/dL; PROTEIN 10.6 mg/dL; Prot/Crea Ur Ratio 0.29
[2023-06-12 18:04] LABS: Bilirubin Negative (Negative); Blood Negative (Negative); Clarity Clear (Clear); Glucose Negative (Negative); Ketones Negative (Negative); Leukocyte Esterase Negative (Negative); Nitrite Negative (Negative); Specific Gravity 1.015 (1.005-1.025); Urobilinogen 0.2 mg/dL (Up to 0.2)
== END 2023-06-12 13:14 | disposition home or self-care (01) ==
LOC: LBN 13:13
PROVIDERS: Internal Medicine Gastroenterology; PCP Nurse Practitioner Family; Visit Provider Ophthalmology
DX: N28.9 Disorder of kidney and ureter, unspecified (principal); K74.3 Primary biliary cirrhosis
CPT/HCPCS: 81003; 82565; 84156

== ENCOUNTER 2023-08-21 02:42 | Outpatient (CLI) | payer MEDICARE, SELFPAY ==
[2023-08-21 12:41] LABS: ALT 25 U/L (14-59); AST 32 U/L (15-37); Albumin 3.4 g/dL (3.4-5.0); Alkaline Phosphatase 119 U/L (46-116); Anion Gap 9.2 mmol/L (3-11); BUN 36 mg/dL (7-18); Bilirubin, Total 0.4 mg/dL (0.2-1.0); CO2 27.8 mmol/L (21.0-32.0); CREATININE 1.5 mg/dL (0.55-1.02); Calcium 9.7 mg/dL (8.5-10.1); Chloride 102 mmol/L (98-107); Estimated GFR 35.01 (mL/min/1.73m2); Glucose 94 mg/dL (74-106); Potassium 4.1 mmol/L (3.5-5.1); Sodium 139 mmol/L (136-145); Total Protein 8.6 g/dL (6.4-8.2)
== END 2023-08-21 02:43 | disposition home or self-care (01) ==
PROVIDERS: PCP Nurse Practitioner Family; Visit Provider Internal Medicine Gastroenterology
DX: N28.9 Disorder of kidney and ureter, unspecified (principal); K74.3 Primary biliary cirrhosis
CPT/HCPCS: 36415; 80053

== ENCOUNTER → 2023-10-10 14:04 | Outpatient (BNVA) | payer MEDICARE, SELFPAY | PROVIDERS: PCP Nurse Practitioner Family; Referring Provider Nurse Practitioner Family | DX: M70.61 Trochanteric bursitis, right hip (principal) | CPT/HCPCS: 20610; J1040 ==

== ENCOUNTER 2023-10-16 04:40 | Outpatient (CLI) | payer MEDICARE, SELFPAY ==
[2023-10-16 14:06] LABS: Abs Immature Grans 0.08 10^3/uL (0.0-0.06); Absolute Basophil Count 0.04 10^3/uL (0.0-0.2); Absolute Eosinophil Count 0.21 10^3/uL (0.0-0.7); Absolute Lymphocyte Count 1.49 10^3/uL (1.2-3.4); Absolute Monocyte Count 0.64 10^3/uL (0.1-0.8); Absolute Neutrophil Count 7.09 10^3/uL (1.2-6.7); Basophils % 0.4; Eosinophils % 2.2; HCT 38.6 % (36.0-46.0); Immature Grans % 0.8; Lymphocytes % 15.6; MCHC 31.1 % (32.0-36.0); MCV 90 fL (80-95); MPV 10.5 fL (8.0-11.0); Monocytes % 6.7; Neutrophils % 74.3; Platelet Count 306 10^3/uL (130-400); RBC 4.28 10^6/uL (3.93-5.22); RDW 14.2 % (11.7-14.6); RDW-SD 47.1 fL; WBC 9.55 10^3/uL (4.4-10.8)
[2023-10-16 14:08] LABS: Bilirubin Negative (Negative); Blood Trace-intact (Negative); Clarity Sl Cloudy (Clear); Glucose Negative (Negative); Ketones Negative (Negative); Leukocyte Esterase Moderate (Negative); Nitrite Positive (Negative); Specific Gravity 1.015 (1.005-1.025); Urobilinogen 0.2 mg/dL (Up to 0.2)
[2023-10-16 14:11] LABS: Bacteria Many HPF (Negative); Epithelial Cells Rare HPF (Negative); WBC 20-50 HPF (0-5)
[2023-10-16 14:12] LABS: C & S Indicated? Yes; Casts Negative LPF (Negative); Crystals Negative HPF (Negative); Mucus Trace (Negative)
[2023-10-16 14:50] LABS: COMMENT (LAB VIEW ONLY) 58.21 mg/dL
[2023-10-16 14:51] LABS: Microalb ug/mg Crea 111.3 ug/mg Cr
[2023-10-16 14:59] LABS: ALT 23 U/L (14-59); AST 23 U/L (15-37); Albumin 3.3 g/dL (3.4-5.0); Alkaline Phosphatase 104 U/L (46-116); Anion Gap 7.9 mmol/L (3-11); BUN 42 mg/dL (7-18); Bilirubin, Total 0.3 mg/dL (0.2-1.0); C-Reactive Protein 0.31 mg/dL (0.0-0.3); CO2 28.1 mmol/L (21.0-32.0); CREATININE 1.4 mg/dL (0.55-1.02); Calcium 9.7 mg/dL (8.5-10.1); Chloride 103 mmol/L (98-107); Estimated GFR 38.03 (mL/min/1.73m2); Glucose 106 mg/dL (74-106); PHOSPHORUS 4.1 mg/dL (2.6-4.7); Potassium 3.7 mmol/L (3.5-5.1); Sodium 139 mmol/L (136-145); Total Protein 8.4 g/dL (6.4-8.2); Uric Acid 5.6 mg/dL (2.6-6.0)
[2023-10-16 23:03] LABS: Parathyroid Hormone,Intact 61 pg/mL (19-88)
[2023-10-17 17:39] LABS: Myeloperoxidase Ab IgG >8.0 U; Proteinase 3 Ab (PR3) <0.2 U
[2023-10-18 18:04] LABS: c-ANCA Negative (Negative); p-ANCA Positive (Negative)
== END 2023-10-16 04:41 | disposition home or self-care (01) ==
PROVIDERS: PCP Nurse Practitioner Family; Visit Provider Internal Medicine Nephrology
DX: N18.32 Chronic kidney disease, stage 3b (principal); E21.3 Hyperparathyroidism, unspecified; R74.8 Abnormal levels of other serum enzymes; I77.82 Antineutrophilic cytoplasmic antibody [ANCA] vasculitis
CPT/HCPCS: 36415; 80053; 82306; 87077; 81003; 81015; 82043; 82570; 83516; 83970; 84100; 84550; 85025; 86140; 86255; 87086; 87186

== ENCOUNTER 2023-11-04 18:13 | Outpatient (REF) | payer MEDICARE, SELFPAY | END 2023-11-04 18:14 | disposition home or self-care (01) | LOC: NCHCN 18:13 | PROVIDERS: PCP Nurse Practitioner Family; Referring Provider Nurse Practitioner Family; Visit Provider Nurse Practitioner Family | DX: E03.9 Hypothyroidism, unspecified (principal) | CPT/HCPCS: 84443 ==

== ENCOUNTER → 2024-02-20 12:44 | Outpatient (BNVA) | payer MEDICARE, SELFPAY | PROVIDERS: PCP Family Medicine; Referring Provider Family Medicine; Visit Provider Student in an Organized Health Care Education/Training Program | DX: M70.61 Trochanteric bursitis, right hip (principal) | CPT/HCPCS: 20610; J1010 ==

== ENCOUNTER 2024-03-11 09:52 | Outpatient (CLI) | payer MEDICARE, SELFPAY ==
--- NOTE | 2024-03-11 09:30 | DI.RAD_ITS ---
Exam(s) XR HIP RT AP LAT ONLY EXAM: XR HIP RT AP LAT ONLY INDICATION: RIGHT HIP PAIN. COMPARISON: CR XR HIP RT COMPLETE AP PELVIS from 05/29/2022 CR XR DEXA BONE DENSITY W/WO BEAR from 06/29/2022 TECHNIQUE: 2D digital imaging was performed. Two views. FINDINGS: Stable alignment of hip prosthesis. No abnormal surrounding bony lucencies. Sacrum mostly obscured by stool and bowel gas. DATA REPOSITORY: RADIATION DOSE DELIVERED:
== END 2024-03-11 09:53 | disposition home or self-care (01) ==
LOC: DIORS 09:52
PROVIDERS: PCP Family Medicine; Referring Provider Family Medicine; Visit Provider Student in an Organized Health Care Education/Training Program
DX: M76.31 Iliotibial band syndrome, right leg (principal); M67.951 Unspecified disorder of synovium and tendon, right thigh; M70.61 Trochanteric bursitis, right hip
CPT/HCPCS: 99214; 73502

== ENCOUNTER 2024-03-17 02:56 | Outpatient (CLI) | payer MEDICARE, SELFPAY ==
[2024-03-17 14:39] LABS: Abs Immature Grans 0.03 10^3/uL (0.0-0.06); Absolute Basophil Count 0.04 10^3/uL (0.0-0.2); Absolute Eosinophil Count 0.24 10^3/uL (0.0-0.7); Absolute Monocyte Count 0.55 10^3/uL (0.1-0.8); Absolute Neutrophil Count 3.78 10^3/uL (1.2-6.7); Basophils % 0.7 %; HGB 11.8 g/dL (11.2-15.7); Immature Grans % 0.5 %; Lymphocytes % 21.9 %; MCH 28.4 pg (27.0-33.0); MCHC 31.1 % (32.0-36.0); MCV 92 fL (80-95); MPV 10.3 fL (8.0-11.0); Monocytes % 9.3 %; Neutrophils % 63.6 %; Platelet Count 203 10^3/uL (130-400); RBC 4.15 10^6/uL (3.93-5.22); RDW 14.7 % (11.7-14.6); RDW-SD 49.8 fL; WBC 5.94 10^3/uL (4.4-10.8)
[2024-03-17 15:49] LABS: ALT 34 U/L (14-59); AST 32 U/L (15-37); Albumin 3.4 g/dL (3.4-5.0); Alkaline Phosphatase 92 U/L (46-116); Anion Gap 10.7 mmol/L (3-11); BUN 35 mg/dL (7-18); Bilirubin, Total 0.35 mg/dL (0.2-1.0); CO2 25.3 mmol/L (21.0-32.0); CREATININE 1.5 mg/dL (0.55-1.02); Calcium 9.5 mg/dL (8.5-10.1); Chloride 103 mmol/L (98-107); Estimated GFR 34.79 (mL/min/1.73m2); Glucose 88 mg/dL (74-106); Magnesium 2.3 mg/dL (1.8-2.4); Potassium 4.1 mmol/L (3.5-5.1); Sodium 139 mmol/L (136-145)
[2024-03-17 15:56] LABS: C-Reactive Protein < 0.50 mg/dL (<or=0.5)
[2024-03-17 23:30] LABS: Parathyroid Hormone,Intact 59 pg/mL (19-88)
[2024-03-18 13:08] LABS: ANCA Interpretation Positive (Negative); ANCA Pattern 1 1:320 PANCA
[2024-03-20 10:51] LABS: Myeloperoxidase Ab IgG >8.0 U; Proteinase 3 Ab (PR3) <0.2 U
== END 2024-03-17 02:57 | disposition home or self-care (01) ==
LOC: LBO 02:56
PROVIDERS: PCP Family Medicine; Visit Provider Internal Medicine Nephrology
DX: I77.82 Antineutrophilic cytoplasmic antibody [ANCA] vasculitis (principal)
CPT/HCPCS: 36415; 80053; 86255; 81003; 82043; 82570; 83516; 83735; 83970; 84100; 85025; 86140

== ENCOUNTER 2024-03-18 15:20 | Outpatient (REF) | payer MEDICARE, SELFPAY ==
[2024-03-18 13:14] LABS: Bilirubin Negative (Negative); Blood Trace-intact (Negative); Clarity Sl Cloudy (Clear); Glucose Negative (Negative); Ketones Negative (Negative); Leukocyte Esterase Large (Negative); Nitrite Negative (Negative); Urobilinogen 0.2 mg/dL (Up to 0.2)
[2024-03-18 13:32] LABS: COMMENT (LAB VIEW ONLY) 38.73 mg/dL; Microalb ug/mg Crea 85.2 ug/mg Cr
== END 2024-03-18 15:21 | disposition home or self-care (01) ==
LOC: LBN 15:20
PROVIDERS: PCP Family Medicine; Visit Provider Internal Medicine Nephrology
DX: N18.32 Chronic kidney disease, stage 3b (principal); R82.998 Other abnormal findings in urine; I77.82 Antineutrophilic cytoplasmic antibody [ANCA] vasculitis
CPT/HCPCS: 81003; 82043; 82570

== ENCOUNTER → 2024-04-29 10:21 | Outpatient (BNVA) | payer MEDICARE, SELFPAY | PROVIDERS: PCP Family Medicine; Visit Provider Student in an Organized Health Care Education/Training Program | DX: M70.61 Trochanteric bursitis, right hip (principal); M76.31 Iliotibial band syndrome, right leg; M67.951 Unspecified disorder of synovium and tendon, right thigh; Z96.641 Presence of right artificial hip joint | CPT/HCPCS: 99214 ==

== ENCOUNTER 2024-05-05 14:58 | Outpatient (REF) | payer MEDICARE, SELFPAY ==
[2024-05-05 16:45] LABS: HCT 39.9 % (36.0-46.0); HGB 12.3 g/dL (11.2-15.7)
[2024-05-05 17:21] LABS: TSH 3.31 uIU/Ml (0.36-3.74)
[2024-05-05 18:45] LABS: Hemoglobin A1C 5.7 % (<5.7)
== END 2024-05-05 14:59 | disposition home or self-care (01) ==
LOC: NCHCN 14:58
PROVIDERS: PCP Family Medicine; Visit Provider Family Medicine
DX: K74.5 Biliary cirrhosis, unspecified (principal); E03.9 Hypothyroidism, unspecified
CPT/HCPCS: 83036; 84443; 85014; 85018

== ENCOUNTER 2024-05-21 09:02 | Day surgery (SDC) | payer MEDICARE, SELFPAY ==
[2024-05-21] VITALS (36 sets, daily range): BP systolic 120–175; BP diastolic 41–75; PULSE 41–60; RESP 10–23; TEMP 35.8–36.6; O2SAT 94–100; BMI 25.4
[2024-05-21] MEDS: Lactated Ringers 1,000 ML 30 ML IV (09:50)
--- NOTE | 2024-05-21 09:54 | W.ANESPRE ---
General Info Date of Service Date Performed: 05/21/24 Height: 5 ft 3 in Weight: 65.3 kg Body Mass Index (BMI): 25.4 Surgical Procedure: Operation Date: 05/21/24 11:35 Proposed Procedure Side Surgeon p Endoscopic Iliotibial Band Release w/ Trochanteric Bursectomy, Possible Gluteal Tendon Repair Right Baljit Angelo MD Meds Allergies and Home Medications Allergies Allergy/AdvReac Type Severity Reaction Status Date / Time azathioprine Allergy Unknown unknown Verified 05/21/24 09:24 phenylephrine Allergy Unknown unknown Verified 05/21/24 09:24 povidone-iodine (From AdvReac Intermediate Other (See Verified 05/21/24 09:24 Betadine) Comment) Home Medication ?Medication ?Instructions ?Recorded ursodiol 300 mg capsule (Actigall) 600 mg PO BID 12/23/13 levothyroxine 112 mcg tablet 112 mcg PO DAILY 06/26/19 fenofibrate 50 mg capsule 52 - 54 mg PO DAILY 07/11/20 krill oil 500 mg capsule 2,000 mg PO HS 01/10/21 magnesium 200 mg tablet 300 mg PO BID 01/10/21 polyethylene glycol 3350 17 17 g PO DAILY 01/10/21 gram/dose oral powder (Miralax) vitamin B complex (B 1 tab PO DAILY 01/10/21 Complex-Vitamin B12 tablet) acetaminophen 500 mg tablet 1,000 mg (2 x 500 mg) PO TID #90 01/30/23 tabs albuterol sulfate 90 mcg/actuation 2 puff inhalation Q4H PRN 11/07/23 aerosol inhaler calcium carbonate (Calcium 500) 1,000 mg PO BID 11/07/23 mometasone-formoterol HFA 200 2 puff inhalation BID 11/07/23 mcg-5 mcg/actuation aerosol inhaler (Dulera) tramadol 50 mg tablet 50 mg PO Q8H PRN severe pain #12 05/21/24 tabs Current Visit Medications: Current Medications Generic Name Dose Route Start Last Admin Trade Name Freq PRN Reason Stop Dose Admin Ringer's Solution 1,000 mls @ 30 mls/hr 05/21/24 06:00 05/21/24 09:50 IV 06/19/24 23:59 30 mls/hr INFUSION SHELBY Administration Cefazolin Sodium/Dextrose 2 gm in 50 mls @ 100 mls/hr 05/21/24 06:00 Ancef Duplex IVPB 05/21/24 16:00 PREOP SHELBY Tranexamic Acid/Sodium Chloride 1,000 mg in 100 mls @ 600 mls/hr 05/21/24 06:00 IVPB 05/21/24 16:00 PREOP SHELBY IV Miscellaneous Supplies 1 each 05/21/24 06:00 Iv Access IV 06/19/24 23:59 DIRECTED SHELBY Sodium Chloride 0 ml 05/21/24 06:00 Normal Saline Flush 10 Ml Syr IV 06/19/24 23:59 PRN PRN Sodium Chloride 0 ml 05/21/24 06:00 Normal Saline 10 Ml Vial IJ 06/19/24 23:59 DIRECTED PRN Sterile Water 0 ml 05/21/24 06:00 Water,Injection,Sterile 10 Ml Vial IJ 06/19/24 23:59 DIRECTED PRN PFSH Active Problems Active Problems: Problem Status Onset Code Tendinopathy of right gluteus medius Acute M67.951 Iliotibial band syndrome of right side Acute M76.31 Muscle tension dysphonia Acute R49.0 Impacted cerumen of both ears Acute H61.23 Change in voice Acute R49.9 Right carpal tunnel syndrome Acute G56.01 Trochanteric bursitis, right hip Chronic M70.61 Ulnar neuropathy of left upper extremity Acute G56.22 Status post total left knee replacement Acute 07/08/19 Z96.652 Hypothyroidism Chronic E03.9 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 Interstitial lung disease Chronic J84.9 Medical History Medical History Unspecified macular degeneration Acute lymphadenitis, unspecified Menopause Abnormal weight loss Nocturia Cardiac arrhythmia, unspecified Anxiety disorder, unspecified Atrioventricular block, first degree Onychomycosis due to dermatophyte Polyneuropathy, unspecified Hyperlipidemia, unspecified Exudative age-related macular degeneration of right eye Other herpesviral infection Osteoarthritis of knee, unspecified Abnormal results of thyroid function studies Other constipation Sjogren syndrome, unspecified 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 07/08/19 TR Surgical History Surgical History Acquired absence of both cervix and uterus Left carpal tunnel syndrome S/P ECTR: 11/27/2022 Hx of cholecystectomy Hx of tonsillectomy History of total right hip arthroplasty Hx of hysterectomy Hx of appendectomy Hx of partial thyroidectomy Tobacco Smoking/Tobacco Use Status: Never Alcohol Alcohol Intake: never Substance Use Substance use: Never Substance use type: does not use Vital Signs and Lab Results Vital Signs Most Recent Vital Signs in EMR: Most Recent Vital Signs Temp Pulse Resp BP Pulse Ox 35.8 C L 60 16 175/75 H 98 05/21/24 09:15 05/21/24 09:15 05/21/24 09:15 05/21/24 09:15 05/21/24 09:15 Lab Results Blood Type / Crossmatch: No Data to Display Complete Blood Count: Hemoglobin 12.3 g/dL (11.2-15.7) 05/05/24 09:28 Hematocrit 39.9 % (36.0-46.0) 05/05/24 09:28 Complete Metabolic Panel: Hemoglobin A1c 5.7 % (<5.7) 05/05/24 09:28 Liver Function Panel: No Data to Display Coagulation Panel: No Data to Display Cardiac Panel: No Data to Display Arterial Blood Gas: No Data to Display Venous Blood Gas: No Data to Display Pancreas Panel: No Data to Display Thyroid Panel: Thyroid Stimulating Hormone (TSH) 3.31 uIU/Ml (0.36-3.74) 05/05/24 09:28 Infectious Disease: No Data to Display Blood Cultures: No Data to Display Toxicology Panel: No Data to Display Imaging and Studies Imaging and Studies Study information below may be from another EMR and interpreted by another provider. Please see original notes in EMR for more complete details. Echocardiogram Summary: 09/06/23 LV EF 63% Grade 1 LV diastolic dysfunction Peak right ventricular systolic pressure is 29mmHg + RA Pressure Mild aortic regurgitation Mild mitral regurgitation Mild tricuspid regurgitation Trivial pericardial effusion Pulmonary Function Summary: 03/08 FVC 2.55L (109% predicted) FEV1 1.90L (102% of predicted) FEV1/FVC 71% Diffusing capacity 39% of predicted Impression: isolated defect in diffusing capacity indicative of early/mild interstitial and/or pulmonary vascular disease, stable since previous Anesthesia Assessment and Plan Anesthesia History Personal History: No History of Anesthesia Complications Family History: No Family History of Anesthesia Complications Exercise Tolerance Exercise Tolerance: Metabolic Equivalents>4 Pertinent Negatives Pertinent Negatives: No Symptoms of GERD, No Major Cardiovascular Symptoms or Complaints, No Major Pulmonary Symptoms or Complaints and No History of CVA/TIA Cardiac & Pulmonary Exam Cardiac Exam: Normal S1/S2 Heart Sounds Pulmonary Exam: Clear Bilateral Breath Sounds Cardiac and Pulmonary Comment:: ILD Implantable Cardiac Device Does patient have a Pacemaker or an ICD?: No Airway Exam Known Difficult Airway: No Mallampati Class: 3 Mouth Opening: Narrow (< 3cm) Thyromental Distance: Greater than 3 cm Neck Range of Motion: Limited ROM Neck Circumference: Normal Teeth Condition: Removable Dentures/Plates Upper, Removable Dentures/Plates Lower and Edentulous ASA Classification ASA Score: ASA 3 Emergency Case?: No NPO Status NPO Status: NPO Clears >2 hours, Solids >8 hours Anesthesia Plan Resuscitation Status: Full Code Anesthesia Technique: General Anesthesia Airway Planned: Endotracheal Tube Monitors Used: Standard Monitors and SedLine
--- NOTE | 2024-05-21 11:20 | ROE_ITS ---
Date of service: 05/21/24 Time of Service: 12:30 Operative Note Operative Note DATE OF PROCEDURE: 05/21/24 PRE-OP DIAGNOSIS: Right hip 1. Iliotibial band syndrome 2. Trochanteric bursitis 3. Gluteal tendon tear POST-OP DIAGNOSIS: same PROCEDURE: Right hip endoscopic 1. Iiliotibial band release, CPT# 10428 2. Trochanteric bursectomy, CPT# 36427 3. Gluteal tendon repair, CPT# 80589 SURGEON: Baljit Angelo CHILD GUIDANCE COUNSELOR: Elva Benites ANESTHESIA TYPE: Local By Surgeon and General LMA/ETT Refer to Anesthesia Record ESTIMATED BLOOD LOSS: 5 COMPLICATIONS: None Patient was transported to: PACU Patient's condition: stable Indications: Please see complete medical record for details. Findings: Thickened inflammatory changes about the iliotibial band. Abundant inflamed trochanteric bursitis. Large gluteal tendon tear, which appeared somewhat chronic and degenerative involving the gluteus medius and minimus. Prior retained permanent sutures more posterior greater trochanter from prior posterior hip replacement surgery. Procedure Description: In the operating room, general anesthesia was induced. The patient was positioned supine on the [place] operating room table. All bony prominences were well-padded. Preoperative antibiotics were administered. The hip was prepped and draped in the usual sterile fashion. The correct patient, procedure, and side of the procedure were all verified prior to incision. 30 cc of 0.25% bupivacaine containing epinephrine was infiltrated about the subcutaneous tissues for the planned anterior lateral and distal anterolateral portals as well as deeply over the greater trochanter. A knife was used to incise the skin for the anterior lateral and distal anterolateral portals followed by blunt dissection subcutaneously. Under fluoroscopic guidance, a switching stick and arthroscope were inserted localizing the iliotibial band over the greater trochanter. Blunt dissection and the mechanical shaver were used to resect fat and overlying tissue about the center of the iliotibial band and carefully expose the anterior and posterior margins. Once there was adequate exposure of the IT band, the greater trochanter was again localized under fluoroscopic guidance with a spinal needle inserted through the skin down to bone. This central area was marked using the radiofrequency ablator. A [place] blade was brought in and used to create a 2 cm longitudinal incision in line with the IT band fibers as well as extending it in a cruciate fashion with 2 cm incisions anteriorly and posteriorly. The radiofrequency ablator was used to achieve hemostasis. The mechanical shaver was then used to debride the IT band released edges exposing the trochanteric bursa. The mechanical shaver was then used to excise the trochanteric bursa taking care to protect musculature about the margins of the greater trochanter as well as neurovascular structures especially posteriorly. There was excellent visualization of the vastus lateralis as well as gluteus medius confirming appropriate bursa excision. The hip was brought through range of motion including internal and external rotation and there was no impinging iliotibial band tissue or remaining pathologic bursa. The viewing and working portals were switched and appropriate IT band release, trochanteric bursa excision, and hemostasis confirmed. There was obvious tearing of the gluteal tendons, carefully inspected through probing graspers and range of motion revealing a majority torn gluteus medius and minimus. There was some remnant fibers deeply and fraying and fibrinous changes about the greater trochanter from proximal to anterior. Large crescent shaped tear from posterior proximal to anterior proximal of the medius and then continuing into the minimus more anteriorly. There was reasonably villa tendon still available in proximity to greater trochanter with appropriate excursion for repair. Given the rather large tear size and longstanding greater trochanteric pain syndrome, decision was made to proceed with complete treatment including repair despite advanced age and probable degenerative problem. The self retrieving scorpion suture passer was used to place a widely spaced inverted horizontal mattress FiberTape through the gluteus medius, more anteriorly and posterior a suture tape FiberLink was placed in cinch mode. Provisional reduction to the central proximal trochanter was confirmed, hip rotation optimize, and with fluoroscopic assistance the undersized punch followed by an oversized 5.5 mm double loaded SwiveLock anchor bio composite was used to secure oral 4 suture tails with appropriate tensioning on the repair. The pontine suture anchor was felt to be adjacent to the hip implant. The remaining FiberWire repair sutures were each shuttled through the minimus more anteriorly and secured with [facility] arthroscopic knots. The large which repair was inspected and stable through range of motion and probing. There was good tissue reapproximation about the greater trochanter. Suction was used to remove fluid from the endoscopic space. The portals were closed using 3-0 Monocryl in a buried fashion. Steri-Strips were applied over the incisions followed by Xeroform, 4 x 4 gauze, an ABD pad, and secured with tape. The patient awoke from anesthesia without complication and was transferred to the recovery room in a stable condition.
--- NOTE | 2024-05-21 11:23 | PDOC.DSDIS_ITS ---
Date of service: 05/21/24 Time of Service: 14:00 Discharge Plan Disposition Patient Disposition: Home Condition: Stable Discharge Details Attending Provider: Baljit Angelo Primary Care Provider: Lillie Christian V Home Meds and New Rx's Prescriptions: New tramadol 50 mg tablet 50 mg PO Q8H PRN (Reason: severe pain) Qty: 12 0RF Continued fenofibrate 50 mg capsule 52 - 54 mg PO DAILY vitamin B complex [B Complex-Vitamin B12] Tablet 1 tab PO DAILY krill oil 500 mg capsule 2,000 mg PO HS magnesium 200 mg tablet 300 mg PO BID polyethylene glycol 3350 [Miralax] 17 gram/dose powder 17 g PO DAILY albuterol sulfate 90 mcg/actuation HFA aerosol inhaler 2 puff inhalation Q4H PRN calcium carbonate [Calcium 500] 500 mg calcium (1,250 mg) tablet,chewable 1,000 mg PO BID Dulera 200-5 mcg/actuation HFA aerosol inhaler 2 puff inhalation BID ursodiol [Actigall] 300 MG capsule 600 mg PO BID levothyroxine 112 mcg Tablet 112 mcg PO DAILY acetaminophen 500 mg tablet 1,000 mg PO TID Qty: 90 0RF Discharge Instructions Additional Instructions: Surgery: Right hip endoscopy with iliotibial band release, trochanteric bursectomy, and gluteal tendon repair Activity: Protected weightbearing with a walker for 6 weeks. Gentle hip range of motion. No strengthening for 3 months. A physical therapy prescription will be sent electronically to begin in about 3 weeks. Prescriptions: No aspirin or NSAIDs due to liver and kidney disease Tramadol 50 mg take 1 every 8 hours as needed for severe pain You may use [id number] Tylenol (acetaminophen) as needed for mild pain. Dressings: Leave dressing in place for 3 days. May then remove and leave open to air or cover incisions with Band-Aids. Leave the sticky Steri-Strips in place until they fall off or remove them after you shower. May shower after 5 days. Follow-up: 10-[address] Angelo You may take off the leg compression stockings this evening at home. You may also leave them on a few days longer if you have a history of leg swelling or edema. Let us know right away if you develop any redness, drainage, fevers, chest pain, or trouble breathing. Do not drink alcohol or drive for at least 24 hours after anesthesia. Please call the office during business hours with any questions or concerns. Stand Alone Forms: Anesthesia Discharge Inst., Sue Jackson (DSU) Referrals: Baljit Angelo MD [ [facility] STAFF PHYSICIAN] - 06/02/24 2:15 pm Discharge Orders Discharge Orders: Discharge Order (Routine); Ordered 05/21/24 Ordered By: Elva Benites DS: Diagnosis Discharge Diagnosis (1) Trochanteric bursitis, right hip: Status: Chronic (2) Iliotibial band syndrome of right side: Status: Acute (3) Tendinopathy of right gluteus medius: Status: Acute
--- NOTE | 2024-05-21 11:30 | DI.RAD_ITS ---
Exam(s) XR HIP RT IN OR EXAM: XR HIP RT IN OR CLINICAL HISTORY: Iliotibial band syndrome of right side:. TECHNIQUE: 2D digital imaging was performed. COMPARISON: CR XR HIP RT AP LAT ONLY from 03/11/2024 FINDINGS: Fluoroscopy was provided during orthopedic procedure for right iliotibial band syndrome. See procedu re report for details. Total fluoroscopy time 9.8 seconds IMPRESSION: Radiation exposure index/cumulative dose:Mayitor= 1.36 mGy DATA REPOSITORY: RADIATION DOSE DELIVERED:
[2024-05-21] MEDS: ceFAZolin 2 GM/50 ML BAG IVPB (12:10)
[2024-05-21] MEDS: TRANEXAMIC ACID/SOD. CHL. 1,000 MG/100 ML BAG 600 MG IVPB (12:13)
[2024-05-21] MEDS: Bupivacaine 0.25% Pres-Free W/EPI 30 ML VIAL (12:39)
[2024-05-21] MEDS: EPINEPHrine 10 MG/10 ML ML (13:23)
[2024-05-21] MEDS: fentaNYL 100 MCG/2 ML VIAL IVP ×4 (13:50→14:26)
--- NOTE | 2024-05-21 14:26 | W.ANESPOSTOP ---
Postoperative Evaluation Date, Time and Location Date Performed: 05/21/24 Time Performed: 14:26 Patient Location: PACU Vital Signs Most Recent Imported Vital Signs: Most Recent Vital Signs Temp Pulse Resp BP Pulse Ox 36.5 C 47 L 19 146/53 H 98 05/21/24 14:24 05/21/24 14:16 05/21/24 14:20 05/21/24 14:16 05/21/24 14:20 Pain Score Most Recent Pain Score: Most Recent Pain Score Pain Level 5 05/21/24 14:24 Assessment Mental Status: Awake (Alert & Oriented to Patient Baseline) Airway and Respiratory Function: Patent airway with normal (patient baseline) respiratory exam Cardiovascular Function: Hemodynamically Stable Hydration Status: Adequately Hydrated Nausea & Vomiting: No Nausea or Vomiting Pain: Pain is tolerable per patient Peripheral Nerve Block: Patient did not receive a nerve block Teaching Patient Teaching: Discussed Safe Use of Pain Medication Given Recent Anesthesia
== END 2024-05-21 16:00 | disposition home or self-care (01) ==
PROVIDERS: PCP Family Medicine; Visit Provider Student in an Organized Health Care Education/Training Program
PROC: (CPT 29863; principal; 2024-05-21 11:15)
DX: M70.61 Trochanteric bursitis, right hip (principal); M76.31 Iliotibial band syndrome, right leg; M67.951 Unspecified disorder of synovium and tendon, right thigh
CPT/HCPCS: 27305; 27062; 27006; 73501; C9290; J0665; J0690; J1100; J1885; J2001; J2405; J2704; J3010

== ENCOUNTER → 2024-06-02 14:07 | Outpatient (BNVA) | payer MEDICARE, SELFPAY | PROVIDERS: PCP Family Medicine; Referring Provider Family Medicine; Visit Provider Student in an Organized Health Care Education/Training Program | DX: Z47.89 Encounter for other orthopedic aftercare (principal); M76.31 Iliotibial band syndrome, right leg ==

== ENCOUNTER → 2024-08-04 13:25 | Outpatient (BNVA) | payer MEDICARE, SELFPAY | PROVIDERS: PCP Family Medicine; Referring Provider Family Medicine; Visit Provider Student in an Organized Health Care Education/Training Program | DX: Z47.89 Encounter for other orthopedic aftercare (principal); M76.31 Iliotibial band syndrome, right leg | CPT/HCPCS: 99024 ==

== ENCOUNTER → 2024-10-06 09:49 | Outpatient (BNVA) | payer MEDICARE, SELFPAY | PROVIDERS: PCP Family Medicine; Referring Provider Family Medicine; Visit Provider Student in an Organized Health Care Education/Training Program | DX: M76.31 Iliotibial band syndrome, right leg (principal); M67.951 Unspecified disorder of synovium and tendon, right thigh; M70.61 Trochanteric bursitis, right hip | CPT/HCPCS: 99213 ==

== ENCOUNTER 2024-12-28 03:14 | Outpatient (CLI) | payer MEDICARE, SELFPAY ==
[2024-12-28 12:47] LABS: ESR 49 mm/hr (0-30)
[2024-12-28 12:48] LABS: Abs Immature Grans 0.02 10^3/uL (0.0-0.06); Absolute Basophil Count 0.04 10^3/uL (0.0-0.2); Absolute Eosinophil Count 0.24 10^3/uL (0.0-0.7); Absolute Lymphocyte Count 1.32 10^3/uL (1.2-3.4); Absolute Monocyte Count 0.64 10^3/uL (0.1-0.8); Absolute Neutrophil Count 4.45 10^3/uL (1.2-6.7); Basophils % 0.6 %; Eosinophils % 3.6 %; HCT 38.9 % (36.0-46.0); HGB 12.2 g/dL (11.2-15.7); Immature Grans % 0.3 %; Lymphocytes % 19.7 %; MCH 28.6 pg (27.0-33.0); MCHC 31.4 % (32.0-36.0); MCV 91 fL (80-95); MPV 10.9 fL (8.0-11.0); Monocytes % 9.5 %; Neutrophils % 66.3 %; Platelet Count 248 10^3/uL (130-400); RBC 4.26 10^6/uL (3.93-5.22); RDW-SD 50.2 fL; WBC 6.71 10^3/uL (4.4-10.8)
[2024-12-28 12:52] LABS: Bilirubin Negative (Negative); Blood Negative (Negative); Clarity Clear (Clear); Glucose Negative (Negative); Ketones Negative (Negative); Leukocyte Esterase Negative (Negative); Nitrite Negative (Negative); Specific Gravity <= 1.005 (1.005-1.025); Urobilinogen 0.2 mg/dL (Up to 0.2)
[2024-12-28 13:05] LABS: COMMENT (LAB VIEW ONLY) 15.54 mg/dL; PROTEIN < 6.0 mg/dL
[2024-12-28 13:19] LABS: ALT 32 U/L (14-59); AST 35 U/L (15-37); Albumin 3.4 g/dL (3.4-5.0); Alkaline Phosphatase 131 U/L (46-116); Anion Gap 8.5 mmol/L (3-11); BUN 35 mg/dL (7-18); Bilirubin, Total 0.5 mg/dL (0.2-1.0); C-Reactive Protein 1.26 mg/dL (<or=0.5); CO2 25.5 mmol/L (21.0-32.0); CREATININE 1.4 mg/dL (0.55-1.02); Calcium 9.8 mg/dL (8.5-10.1); Chloride 103 mmol/L (98-107); Estimated GFR 37.56 (mL/min/1.73m2); Glucose 102 mg/dL (74-106); Magnesium 2.1 mg/dL (1.8-2.4); PHOSPHORUS 3.6 mg/dL (2.6-4.7); Sodium 137 mmol/L (136-145); Total Protein 8.5 g/dL (6.4-8.2)
[2024-12-28 21:59] LABS: Parathyroid Hormone,Intact 53 pg/mL (19-88)
[2024-12-29 12:25] LABS: ANCA Interpretation Positive (Negative)
[2024-12-30 18:27] LABS: Proteinase 3 Ab (PR3) <0.2 U
== END 2024-12-28 03:15 | disposition home or self-care (01) ==
PROVIDERS: PCP Family Medicine; Visit Provider Internal Medicine Nephrology
DX: N18.32 Chronic kidney disease, stage 3b (principal); I77.82 Antineutrophilic cytoplasmic antibody [ANCA] vasculitis
CPT/HCPCS: 36415; 80053; 85652; 86255; 81003; 82565; 83516; 83735; 83970; 84100; 84156; 85025; 86140

== ENCOUNTER 2025-02-24 05:10 | Outpatient (CLI) | payer MEDICARE, SELFPAY ==
[2025-02-24 10:35] LABS: Abs Immature Grans 0.02 10^3/uL (0.0-0.06); Absolute Basophil Count 0.05 10^3/uL (0.0-0.2); Absolute Eosinophil Count 0.21 10^3/uL (0.0-0.7); Absolute Lymphocyte Count 1.13 10^3/uL (1.2-3.4); Absolute Monocyte Count 0.43 10^3/uL (0.1-0.8); Absolute Neutrophil Count 4.02 10^3/uL (1.2-6.7); Basophils % 0.9 %; Eosinophils % 3.6 %; HCT 43.1 % (36.0-46.0); HGB 13.4 g/dL (11.2-15.7); Immature Grans % 0.3 %; Lymphocytes % 19.3 %; MCH 28.2 pg (27.0-33.0); MCHC 31.1 % (32.0-36.0); MCV 91 fL (80-95); MPV 10.9 fL (8.0-11.0); Monocytes % 7.3 %; Neutrophils % 68.6 %; Platelet Count 234 10^3/uL (130-400); RBC 4.75 10^6/uL (3.93-5.22); RDW 14.9 % (11.7-14.6); WBC 5.86 10^3/uL (4.4-10.8)
[2025-02-24 10:37] LABS: ESR 56 mm/hr (0-30)
[2025-02-24 10:37] LABS: Bilirubin Negative (Negative); Blood Negative (Negative); Clarity Clear (Clear); Glucose Negative (Negative); Ketones Negative (Negative); Leukocyte Esterase Trace (Negative); Nitrite Negative (Negative); Urobilinogen 0.2 mg/dL (Up to 0.2)
[2025-02-24 10:43] LABS: Bacteria Negative HPF (Negative); C & S Indicated? No; Casts Negative LPF (Negative); Crystals Negative HPF (Negative); Epithelial Cells Rare HPF (Negative); Mucus Negative (Negative); RBC Negative HPF (0-2); WBC 0-2 HPF (0-5)
[2025-02-24 11:00] LABS: COMMENT (LAB VIEW ONLY) 14.17 mg/dL; PROTEIN < 6.0 mg/dL
[2025-02-24 11:04] LABS: Microalb ug/mg Crea 52.9 ug/mg Cr
[2025-02-24 11:12] LABS: ALT 35 U/L (14-59); AST 42 U/L (15-37); Albumin 3.9 g/dL (3.4-5.0); Alkaline Phosphatase 120 U/L (46-116); Anion Gap 9.1 mmol/L (3-11); BUN 32 mg/dL (7-18); Bilirubin, Total 0.6 mg/dL (0.2-1.0); C-Reactive Protein 0.53 mg/dL (<or=0.5); CO2 26.9 mmol/L (21.0-32.0); CREATININE 1.3 mg/dL (0.55-1.02); Calcium 9.8 mg/dL (8.5-10.1); Chloride 102 mmol/L (98-107); Estimated GFR 41.06 (mL/min/1.73m2); Glucose 94 mg/dL (74-106); PHOSPHORUS 3.7 mg/dL (2.6-4.7); Potassium 4.3 mmol/L (3.5-5.1); Sodium 138 mmol/L (136-145); Total Protein 9.4 g/dL (6.4-8.2)
[2025-02-25 11:07] LABS: RNP Ab, IgG <6.0 CU (<20.0); Ro60 Ab, IgG <7.0 CU (<20.0); SS-B (La) Ab, IgG <3.3 CU (<20.0); Sm (Smith) Ab, IgG <8.0 CU (<20.0)
[2025-02-25 14:40] LABS: ANCA Interpretation Positive (Negative)
[2025-04-12 08:18] LABS: Myeloperoxidase Ab IgG 32.95 IU/mL (<6.00); Proteinase 3 Ab (PR3) <0.6 IU/mL (<6.0)
== END 2025-02-24 05:11 | disposition home or self-care (01) ==
LOC: LBO 05:10
PROVIDERS: PCP Family Medicine; Visit Provider Internal Medicine Nephrology
DX: N18.30 Chronic kidney disease, stage 3 unspecified (principal); M35.01 Sjogren syndrome with keratoconjunctivitis; I77.82 Antineutrophilic cytoplasmic antibody [ANCA] vasculitis
CPT/HCPCS: 36415; 80053; 85652; 86255; 81003; 81015; 82043; 82565; 82570; 83516; 83735; 83970; 84100; 84156; 85025; 86140; 86235

== ENCOUNTER 2025-07-15 13:30 | Emergency (ER) | payer MEDICARE, SELFPAY ==
[2025-07-15] VITALS (10 sets, daily range): BP systolic 134–167; BP diastolic 66–90; PULSE 66–94; RESP 16–23; TEMP 37; O2SAT 92–97
--- NOTE | 2025-07-15 14:30 | DI.RAD_ITS ---
Exam(s) XR FEMUR LT EXAM: XR FEMUR LT CLINICAL HISTORY: fall, pain. TECHNIQUE: 2D digital imaging was performed of the left femur. Four images were obtained. AP and lateral views were obtained. COMPARISON: CR XR STANDING ALIGNMENT from 07/22/2019 FINDINGS: BONES: No acute fracture is present. No bony destructive lesion is seen. The patient has a left total knee arthroplasty. It is incompletely visualized. There is also incomplete visualization of a right total hip arthroplasty. SOFT TISSUE: Atherosclerotic calcifications are present. IMPRESSION: There is no acute fracture or dislocation. DATA REPOSITORY: RADIATION DOSE DELIVERED:
--- NOTE | 2025-07-15 14:30 | DI.RAD_ITS ---
Exam(s) XR THORACIC SPINE COMPLETE EXAM: XR THORACIC SPINE COMPLETE CLINICAL HISTORY: fall from bed. TECHNIQUE: 2D digital imaging was performed of the thoracic spine. Four views were obtained. AP, swimmer's and lateral views were obtained. COMPARISON: No exams were available for comparison DEXA scan is 08/20/2017 FINDINGS: BONES: There is no fracture or destructive lesion. The vertebral bodies and posterior elements are unremarkable. The bones are osteopenic. There is mild anterior wedging of the T8 vertebral body. This was present on the DEXA scan from 2017. DISKS:There is a dextroscoliosis of the thoracic spine. Interverebral disc spaces are maintained. SOFT TISSUE: Visualized lungs are clear. IMPRESSION: 1. Exam limited by patient body habitus and osteopenia. 2. Old T8 compression deformity. 3. Within the limits of the examination, no acute fractures or subluxations are seen in the thoracic spine. DATA REPOSITORY: RADIATION DOSE DELIVERED:
[2025-07-15 15:13] LABS: Abs Immature Grans 0.02 10^3/uL (0.0-0.06); HCT 37.1 % (36.0-46.0); HGB 12.0 g/dL (11.2-15.7); Immature Grans % 0.3 %; MCH 28.4 pg (27.0-33.0); MCHC 32.3 % (32.0-36.0); MCV 88 fL (80-95); MPV 10.8 fL (8.0-11.0); Platelet Count 214 10^3/uL (130-400); RBC 4.23 10^6/uL (3.93-5.22); RDW 14.2 % (11.7-14.6); RDW-SD 45.4 fL; WBC 6.94 10^3/uL (4.4-10.8)
--- NOTE | 2025-07-15 15:20 | W.ED.GENAD ---
Discharge Plan Disposition Patient Disposition: Against Medical Advice Discharge Details Clinical Impression: Weakness, Elevated troponin, Accidental fall from bed, Compression of thoracic vertebra Primary Care Provider: Lillie Christian V ED Provider: Gamaliel Rain Home Meds and New Rx's Prescriptions: No Action fenofibrate 50 mg capsule 52 - 54 mg PO DAILY budesonide-formoterol [Breyna] 160-4.5 mcg/actuation HFA aerosol inhaler 2 puff inhalation BID vitamin B complex [B Complex-Vitamin B12] Tablet 1 tab PO DAILY krill oil 500 mg capsule 2,000 mg PO HS magnesium 200 mg tablet 300 mg PO BID polyethylene glycol 3350 [Miralax] 17 gram/dose powder 17 g PO DAILY albuterol sulfate 90 mcg/actuation HFA aerosol inhaler 2 puff inhalation Q4H PRN calcium carbonate [Calcium 500] 500 mg calcium (1,250 mg) tablet,chewable 1,000 mg PO BID ursodiol [Actigall] 300 MG capsule 600 mg PO BID levothyroxine 112 mcg Tablet 112 mcg PO DAILY acetaminophen 500 mg tablet 1,000 mg PO TID Qty: 90 0RF Discharge Instructions Instructions: Leaving Against Medical Advice Additional Instructions: You are leaving AGAINST MEDICAL ADVICE. Please feel free to return at any time for further diagnostic workup and treatment as recommended. Blood test today revealed that your cardiac enzymes were elevated. Please be sure to discuss this with your doctor as additional outpatient diagnostic testing is indicated. Please be sure to discuss your medication with your doctor. Referrals: Lillie Christian MD [Primary Care Provider, Medicine] HPI General Mode of arrival: EMS. Date/Time Provider Initiated Documentation: 07/15/25 13:59. Limitations to Documentation: no limitations. Information obtained by: patient and family. HPI Narrative: HISTORY OF PRESENT ILLNESS This is an 84-year-old female with a history of asthma, hip replacement, osteopenia, and rheumatoid arthritis presenting after sliding out of her bed last night onto the floor. She is accompanied by her daughter. The patient reports feeling better than she did earlier in the day. She experienced a fall from her bed to the floor last night while trying to get up, which resulted in her being unable to rise due to pain and weakness. She does not recall any specific injuries from the fall. Her neighbor assisted her this morning, placing a cushion under her and covering her with blankets. The patient's daughter, upon returning from school, found her mother on the floor and called EMS. The patient was reluctant to be transported by EMS but was eventually convinced. She reports no head injury or headache. The patient's daughter reports that her mother has been unwell since 07/11/2025, with symptoms including loss of appetite, decreased fluid intake, and difficulty breathing deeply, although she has no cough or sneeze. A COVID-19 test conducted on 07/11/2025 was negative. Despite feeling unwell, she managed to eat and drink on 07/14/2025. She has a history of asthma. PAST SURGICAL HISTORY: Hip replacement, knee replacement Related Data Home Medications Medication Instructions Recorded Confirmed ursodiol 300 mg capsule (Actigall) 600 mg PO BID 12/23/13 10/06/24 levothyroxine 112 mcg tablet 112 mcg PO DAILY 06/26/19 10/06/24 fenofibrate 50 mg capsule 52 - 54 mg PO DAILY 07/11/20 10/06/24 krill oil 500 mg capsule 2,000 mg PO HS 01/10/21 10/06/24 magnesium 200 mg tablet 300 mg PO BID 01/10/21 10/06/24 polyethylene glycol 3350 17 17 g PO DAILY 01/10/21 10/06/24 gram/dose oral powder (Miralax) vitamin B complex (B 1 tab PO DAILY 01/10/21 10/06/24 Complex-Vitamin B12 tablet) acetaminophen 500 mg tablet 1,000 mg (2 x 500 mg) PO TID #90 01/30/23 10/06/24 tabs albuterol sulfate 90 mcg/actuation 2 puff inhalation Q4H PRN 11/07/23 10/06/24 aerosol inhaler calcium carbonate (Calcium 500) 1,000 mg PO BID 11/07/23 10/06/24 budesonide-formoterol HFA 160 2 puff inhalation BID 08/04/24 10/06/24 mcg-4.5 mcg/actuation aerosol inhaler (Breyna) Previous Rx's Medication Instructions Recorded acetaminophen 500 mg tablet 1,000 mg (2 x 500 mg) PO TID #90 01/30/23 tabs Allergies Allergy/AdvReac Type Severity Reaction Status Date / Time azathioprine Allergy Unknown unknown Verified 10/06/24 10:09 phenylephrine Allergy Unknown unknown Verified 10/06/24 10:09 povidone-iodine (From AdvReac Intermediate Other (See Verified 10/06/24 10:09 Betadine) Comment) General Stated Complaint: Fall/Non TraumaCriteria CHRISTIANO: 3 Review of Systems All systems reviewed & are unremarkable except as noted in HPI and below Constitutional Constitutional: Denies fever(s) and Reports weakness Cardiovascular Cardiovascular: Denies chest pain Musculoskeletal Comments: Pain in mid back from lying on her back, pain in right thigh Neurologic Neurologic: Reports weakness Exam Const General: cooperative and no acute distress [facility] Head: normocephalic and atraumatic Mouth: moist mucous membranes Resp Auscultation: clear to auscultation bilaterally, no rales, no rhonchi and no wheezes Cardio Rate: regular rate and not tachycardic Rhythm: regular rhythm GI Palpation: soft, not firm, no guarding, no masses, not rigid and nontender Back/Spine/Pelvis Cervical Spine: cervical ROM normal, No cervical spinal tenderness and No step off deformity Thoracic/Lumbar Spine: thoracic spinal tenderness Skin General skin exam: no rashes or lesions noted Neuro General: patient alert, patient awake and tone normal Extrem General: no edema Right lower extremity: hip/thigh Details: tenderness Location: of the mid upper leg Course Vital Signs Vital signs: Vital Signs Temperature 37 C 07/15/25 13:38 Pulse 75 07/15/25 13:38 Respiratory Rate 16 07/15/25 13:38 Blood Pressure 167/84 H 07/15/25 13:38 Pulse Oximetry 94 07/15/25 13:38 Temperature 37 C 07/15/25 13:38 Temperature Source Temporal Artery Scan 07/15/25 13:38 Pulse 75 07/15/25 13:38 Respiratory Rate 16 07/15/25 13:38 Blood Pressure 167/84 H 07/15/25 13:38 Blood Pressure Position Supine 07/15/25 13:38 Pulse Oximetry 94 07/15/25 13:38 Oxygen Delivery Method Room Air 07/15/25 13:38 Oxygen Flow Rate 0 07/15/25 13:38 Medical Decision Making ASSESSMENT AND PLAN Initial Assessment: 84-year-old female with multiple medical problems here with generalized weakness over the past week, slipped from bed to the floor last night and was too weak to stand, spent most of the night on the floor. Patient did not strike her head and has no headache or neck pain. She has pain in her upper back from lying on it all night. She also notes pain in right mid thigh. Both of these areas are tender to palpation. Patient appears mildly hypovolemic. She is hypertensive. Patient has made it clear that she does not desire invasive treatment or prolonged workup here today. She is agreeable to x-rays and basic screening labs. Differential Diagnosis: - Fracture of thoracic spine and femur - Dehydration - Urinary tract infection ED Course: - Administered intravenous fluids - X-ray of the thoracic spine interpreted by radiology:1. Exam limited by patient body habitus and osteopenia. 2. Old T8 compression deformity. 3. Within the limits of the examination, no acute fractures or subluxations are seen in the thoracic spine. - X-ray of the left femur was erroneously obtained. X-ray of the rt femur to be obtained. - Labs reviewed . Urine with trace ketones, troponin elevated initially and slight increase on delta troponin. Plan for hospitalization given generalized weakness and elevated cardiac enzymes. Plan to trend troponin and maintain on animal pathologist. Plan for PT evaluation. - Plan discussed with patient who provided informed refusal and wishes to leave AGAINST MEDICAL ADVICE. Patient has decisional making capacity to refuse care. Clinical Impression: - Fall from bed - Generalized weakness - Elevated cardiac enzymes Disposition: - Admission: Plan to keep her overnight for observation. No rooms available, may stay in ED overnight. This document was written with the assistance of [employer]. The patient consented to its use. [facility] All Active Problems (Updated 07/15/25 @ 17:17 by Gamaliel Rain MD) Compression of thoracic vertebra (Acute) Accidental fall from bed (Acute) Elevated troponin (Acute) Weakness (Acute) Tendinopathy of right gluteus medius (Acute) s/p Right hip endoscopy with iliotibial band release, trochanteric bursectomy, and gluteal tendon repair 05/21/24 Iliotibial band syndrome of right side (Acute) Muscle tension dysphonia (Acute) Impacted cerumen of both ears (Acute) Change in voice (Acute) Right carpal tunnel syndrome (Acute) s/p right ECTR DOS: 01/30/23 Trochanteric bursitis, right hip (Chronic) DEPO MEDROL 10/10/2023; 04/05/22; 07/03/21; 02/22/23 Ulnar neuropathy of left upper extremity (Acute) Status post total left knee replacement (Acute 07/08/19) Hypothyroidism (Chronic) 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) Interstitial lung disease (Chronic) Medical History (Updated 07/15/25 @ 17:17 by Gamaliel Rain MD) Unspecified macular degeneration Acute lymphadenitis, unspecified Menopause Abnormal weight loss Nocturia Cardiac arrhythmia, unspecified Anxiety disorder, unspecified Atrioventricular block, first degree Onychomycosis due to dermatophyte Polyneuropathy, unspecified Hyperlipidemia, unspecified Exudative age-related macular degeneration of right eye Other herpesviral infection Osteoarthritis of knee, unspecified Abnormal results of thyroid function studies Other constipation Sjogren syndrome, unspecified 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 07/08/19 TR Surgical History (Updated 05/21/24 @ 13:46 by DOUG Peña) Acquired absence of both cervix and uterus Left carpal tunnel syndrome S/P ECTR: 11/27/2022 Hx of cholecystectomy Hx of tonsillectomy History of total right hip arthroplasty Hx of hysterectomy Hx of appendectomy Hx of partial thyroidectomy Family History Mother Depression and suicide at age 45 Father Heart failure massive PA Paternal Grandfather CAD (coronary artery disease) Daughter Migraine Fibromyalgia Social History Smoking/Tobacco Use Status: Never Smoking risk assessment performed?: Yes Alcohol Intake: never Drug use: Never Substance use type: does not use Household members: spouse Housing: house Number of Children: 2 number of grandchildren: 2 Pets and animals: Yes Pets and animals: cat(s), dog(s) and farm animals Current gender identity: female What is your relationship status?: Panel score (0-1 are the most socially isolated patients): 1 What type of physical activity do you participate in: walking and additional Details: gardening and animal chores Seatbelt use: always Do you feel safe at home: Yes Do you feel safe in your relationship?: Yes Additional Social history: lives alone
[2025-07-15 15:35] LABS: ALT 28 U/L (14-59); AST 37 U/L (15-37); Albumin 3.3 g/dL (3.4-5.0); Alkaline Phosphatase 98 U/L (46-116); Anion Gap 10.6 mmol/L (3-11); BUN 23 mg/dL (7-18); Bilirubin, Total 0.5 mg/dL (0.2-1.0); CO2 23.4 mmol/L (21.0-32.0); Calcium 9.1 mg/dL (8.5-10.1); Chloride 103 mmol/L (98-107); Creatine Kinase 219 U/L (26-192); Glucose 96 mg/dL (74-106); Magnesium 2.1 mg/dL (1.8-2.4); Potassium 3.5 mmol/L (3.5-5.1); Sodium 137 mmol/L (136-145); Total Protein 8.2 g/dL (6.4-8.2)
[2025-07-15 15:41] LABS: TSH (W/Ref FT4) 1.01 uIU/mL (0.36-3.74)
[2025-07-15 15:48] LABS: COVID-19 PCR Negative (Negative); RSV PCR Negative (Negative)
[2025-07-15 15:49] LABS: Troponin I 68 ng/L (<or=51)
[2025-07-15 15:58] LABS: Acetaminophen < 2 ug/mL (10-30)
[2025-07-15 16:00] LABS: Glucose Negative (Negative)
[2025-07-15 16:12] LABS: C & S Indicated? No; WBC Negative HPF (0-5)
[2025-07-15] MEDS: Lactated Ringers 500 ML 1000 ML IV (16:12)
[2025-07-15 16:41] LABS: Creatine Kinase 211 U/L (26-192)
[2025-07-15 16:45] LABS: Troponin I 73 ng/L (<or=51)
== END 2025-07-15 17:47 | disposition left against medical advice (07) ==
PROVIDERS: Emergency Provider Student in an Organized Health Care Education/Training Program; PCP Family Medicine
DX: R53.1 Weakness (principal); S22.069A Unspecified fracture of T7-T8 vertebra, initial encounter for closed fracture; R79.89 Other specified abnormal findings of blood chemistry; W06.XXXA Fall from bed, initial encounter
CPT/HCPCS: 99284 ×2; 36415; 73552; 80053; 82550; 87637; 96360; 72072; 80329; 81003; 81015; 83735; 84443; 84484; 85025